=== PATIENT | female | born 1930 | race Caucasian/White ===

== ENCOUNTER 2017-04-06 20:55 | Inpatient (IN) | payer MEDICARE, MEDICAID ==
[~2017-04-06] VITALS: Ht 162.6 cm; Wt 61.2 kg
[~2017-04-06 20:55] MED LIST: CLOT15CR63 TP; DONE5TAB34 PO; HYDR59LO5 TP; LEVO100T9 PO; LISI-603 PO; PARO20TA6 PO; RISP0.5T20 PO; TRAZ-144 PO
[2017-04-06] MEDS ORDERED: LORAZEPAM INJ 2 MG/ML VIAL ONE (21:30)
[2017-04-06 21:34] LABS: BASOPHILS # (AUTO) 0.1 /CMM (0.0-0.2); BASOPHILS % (AUTO) 0.6 % (0.0-2.0); EOSINOPHILS # (AUTO) 0.2 /CMM (0.0-0.7); EOSINOPHILS % (AUTO) 2.5 % (0.0-6.0); HEMATOCRIT 38 % (33-45); HEMOGLOBIN 12.4 g/dL (11.5-14.8); LYMPHOCYTES # (AUTO) 1.1 /CMM (0.8-4.8); LYMPHOCYTES % (AUTO) 12.4 % (20.0-44.0); MEAN CORPUSCULAR HEMOGLOBIN 30 PG (26.0-33.0); MEAN CORPUSCULAR HGB CONC 33 g/dl (31.0-36.0); MEAN CORPUSCULAR VOLUME 91 fL (82-100); MONOCYTES # (AUTO) 0.7 /CMM (0.1-1.30); MONOCYTES % (AUTO) 7.3 % (2.0-12.0); NEUTROPHILS % (AUTO) 77.2 % (43.0-81.0); PLATELET COUNT (AUTO) 230 /CMM (150-450); RDW COEFFICIENT OF VARIATION 13.9 (11.5-15.0); RED BLOOD CELL COUNT(AUTO) 4.14 MIL/uL (4.0-5.2); WHITE BLOOD COUNT (AUTO) 9.1 K/uL (4.3-11.0)
[2017-04-06 21:42] LABS: CALCIUM, SERUM 9.5 mg/dL (8.5-10.1); CARBON DIOXIDE 23 mmol/L (21-32); CHLORIDE 109 mmol/L (98-107); CREATININE 1.6 mg/dL (0.6-1.3); GLUCOSE 112 mg/dL (74-106); POTASSIUM 4.4 mmol/L (3.5-5.1); SODIUM SERUM 144 mmol/L (136-145); UREA NITROGEN, BLOOD 31 mg/dL (7-18)
[2017-04-06 21:47] LABS: INR 1.01 (0.87-1.13); PROTHROMBIN TIME 10.5 SECS (9.5-12.7)
[2017-04-06 21:48] LABS: ALANINE AMINOTRANSFERASE 18 U/L (12-78); ALBUMIN 3.8 g/dL (3.4-5.0); ALKALINE PHOSPHATASE 93 U/L (46-116); ASPARTATE AMINOTRANSFERASE 18 U/L (15-37); BILIRUBIN,DIRECT 0.1 mg/dL (0.0-0.2); BILIRUBIN,TOTAL 0.9 mg/dL (0.2-1.0); TOTAL PROTEIN, SERUM 7.8 g/dL (6.4-8.2)
[2017-04-06 21:53] LABS: TROPONIN I < 0.017 ng/mL (0.00-0.056)
[2017-04-06] MEDS ORDERED: LORAZEPAM INJ 2 MG/ML VIAL IV PRN (23:00)
[2017-04-06] MEDS ORDERED: IV NS 0.9% 1,000 ML ONE (23:13)
[2017-04-06] MEDS ORDERED: IV SET PRIMARY 1 EA INFUS.SET MC ONE (23:13)
[2017-04-06 23:27] LABS: APPEARANCE,URINE SL CLOUDY (CLEAR); BILIRUBIN,URINE NEGATIVE (NEGATIVE); BLOOD, URINE TRACE-INTA Ery/uL (NEGATIVE); COLOR,URINE YELLOW (YELLOW); KETONES,URINE NEGATIVE (NEGATIVE); LEUKOCYTE ESTERASE ,URINE TRACE (NEGATIVE); NITRITE, URINE POSITIVE (NEGATIVE); PROTEIN,URINE NEGATIVE (NEGATIVE); UGLUCOSE NEGATIVE (NEGATIVE); UROBILINOGEN,URINE 0.2 EU/dL (0.2)
[2017-04-06] MEDS ORDERED: IV NS 0.9% 1,000 ML BAG IV ONE (23:30)
[2017-04-06 23:35] LABS: BACTERIA,URINE 3+ /HPF (None Seen); SQUAMOUS EPITHELIAL CELL,UR Rare /HPF (None Seen)
[2017-04-07] MEDS ORDERED: CEFTRIAXONE 1GM BAG (ER ONLY) 1 GM/50 ML PIGGYBACK IV ONE
[2017-04-07] MEDS ORDERED: CEFTRIAXONE 1GM BAG (ER ONLY) 50 ML IV ONE (00:06)
[2017-04-07] MEDS ORDERED: IV SET PRIMARY PUMP SET 1 EA INFUS.SET MC ONE ×2 (00:07→01:26)
[2017-04-07 00:15] VITALS: BP 152/75
[2017-04-07] MEDS ORDERED: IV NS 0.9% 1,000 ML BAG IV ONE (00:30)
[2017-04-07] MEDS ORDERED: MAG HYDROX/AL HYDROX/SIMETH 30 ML UDC PO PRN (00:30)
[2017-04-07] MEDS ORDERED: ACETAMINOPHEN 325 MG TABLET PO PRN (00:30)
[2017-04-07] MEDS ORDERED: CEFTRIAXONE 1 G in IV D5W 50 ML IV SCH (00:30)
[2017-04-07] MEDS ORDERED: ZOLPIDEM TARTRATE 5 MG TABLET PO PRN (00:30)
[2017-04-07] MEDS ORDERED: MAGNESIUM HYDROXIDE 30 ML UDC PO PRN (00:30)
[2017-04-07] MEDS ORDERED: Z GUARD REMEDY 2 OZ OINT TP PRN (00:30)
[2017-04-07] MEDS ORDERED: ONDANSETRON HCL/PF 4 MG/2 ML VIAL IVP PRN (00:30)
[2017-04-07 00:35] VITALS: BP 152/75
[2017-04-07 08:00] VITALS: BP 148/78
[2017-04-07] MEDS ORDERED: IV NS 0.9% 1,000 ML IV PRN (08:27)
[2017-04-07] MEDS ORDERED: HYDROCORTISONE 2.5% CREAM 28.4 GM TUBE TP SCH (08:28)
[2017-04-07] MEDS: risperiDONE 0.25 MG TABLET PO SCH ×2 (09:01→18:00)
[2017-04-07] MEDS: LISINOPRIL (20MG) 20 MG TABLET PO SCH (09:02)
[2017-04-07] MEDS: LEVOTHYROXINE SODIUM 100 MCG TABLET PO SCH (09:02)
[2017-04-07] MEDS: PAROXETINE HCL 20 MG TABLET PO SCH (09:02)
[2017-04-07 09:22] LABS: BASOPHILS % (AUTO) 0.6 % (0.0-2.0); EOSINOPHILS # (AUTO) 0.2 /CMM (0.0-0.7); EOSINOPHILS % (AUTO) 3.4 % (0.0-6.0); HEMATOCRIT 32 % (33-45); HEMOGLOBIN 10.8 g/dL (11.5-14.8); LYMPHOCYTES # (AUTO) 0.8 /CMM (0.8-4.8); MEAN CORPUSCULAR HEMOGLOBIN 31 PG (26.0-33.0); MEAN CORPUSCULAR HGB CONC 34 g/dl (31.0-36.0); MEAN CORPUSCULAR VOLUME 91 fL (82-100); MONOCYTES # (AUTO) 0.6 /CMM (0.1-1.30); MONOCYTES % (AUTO) 9.2 % (2.0-12.0); NEUTROPHILS # (AUTO) 4.6 /CMM (1.8-8.9); NEUTROPHILS % (AUTO) 73.8 % (43.0-81.0); PLATELET COUNT (AUTO) 174 /CMM (150-450); RDW COEFFICIENT OF VARIATION 14.5 (11.5-15.0); RED BLOOD CELL COUNT(AUTO) 3.54 MIL/uL (4.0-5.2); WHITE BLOOD COUNT (AUTO) 6.3 K/uL (4.3-11.0)
[2017-04-07 09:31] LABS: CALCIUM, SERUM 8.2 mg/dL (8.5-10.1); CARBON DIOXIDE 25 mmol/L (21-32); CHLORIDE 112 mmol/L (98-107); CREATININE 1.2 mg/dL (0.6-1.3); GLUCOSE 86 mg/dL (74-106); POTASSIUM 3.9 mmol/L (3.5-5.1); SODIUM SERUM 146 mmol/L (136-145); UREA NITROGEN, BLOOD 22 mg/dL (7-18)
[2017-04-07 09:33] LABS: IRON, SERUM 38 ug/dl (50-175); TOTAL IRON BINDING CAPACITY 209 ug/dl (250-450)
[2017-04-07 09:39] LABS: ALANINE AMINOTRANSFERASE 17 U/L (12-78); ALKALINE PHOSPHATASE 81 U/L (46-116); ASPARTATE AMINOTRANSFERASE 15 U/L (15-37); BILIRUBIN,TOTAL 0.8 mg/dL (0.2-1.0); MAGNESIUM 1.8 mg/dL (1.8-2.4); TOTAL PROTEIN, SERUM 6.3 g/dL (6.4-8.2)
[2017-04-07 09:41] LABS: CHOLESTEROL 204 mg/dL (<200); HDL CHOLESTEROL 34 mg/dL (40-60); LDL 134 mg/dL (0-99); THYROID STIMULATING HORMONE 0.195 uIU/mL (0.358-3.74); TRIGLYCERIDES 144 mg/dL (30-150)
[2017-04-07] MEDS: HYDROCORTISONE 2.5% LOTION 59 ML BOTTLE TP SCH (11:32)
[2017-04-07 16:00] VITALS: BP 115/56
[2017-04-07] MEDS: HYDROCODONE/APAP 5/325MG 1 EACH TABLET PO PRN (16:01)
[2017-04-07 20:00] VITALS: BP 164/77
[2017-04-07] MEDS: DONEPEZIL 5 MG TABLET PO SCH (22:24)
[2017-04-07] MEDS: TRAZODONE 50 MG TABLET PO SCH (22:24)
[2017-04-07] MEDS: CLOTRIMAZOLE 1% 15 GM TUBE TP SCH (22:27)
[2017-04-08] VITALS: BP 140/75
[2017-04-08] MEDS: CEFTRIAXONE 1 G in IV D5W 50 ML IV SCH ×2 (00:09→23:42)
[2017-04-08 04:00] VITALS: BP 144/67
[2017-04-08 07:53] LABS: BASOPHILS % (AUTO) 0.5 % (0.0-2.0); EOSINOPHILS # (AUTO) 0.2 /CMM (0.0-0.7); EOSINOPHILS % (AUTO) 2.8 % (0.0-6.0); HEMATOCRIT 36 % (33-45); HEMOGLOBIN 12.2 g/dL (11.5-14.8); LYMPHOCYTES # (AUTO) 0.7 /CMM (0.8-4.8); LYMPHOCYTES % (AUTO) 8.6 % (20.0-44.0); MEAN CORPUSCULAR HEMOGLOBIN 31 PG (26.0-33.0); MEAN CORPUSCULAR HGB CONC 34 g/dl (31.0-36.0); MEAN CORPUSCULAR VOLUME 92 fL (82-100); MONOCYTES # (AUTO) 0.6 /CMM (0.1-1.30); MONOCYTES % (AUTO) 7.3 % (2.0-12.0); NEUTROPHILS # (AUTO) 6.4 /CMM (1.8-8.9); NEUTROPHILS % (AUTO) 80.8 % (43.0-81.0); PLATELET COUNT (AUTO) 185 /CMM (150-450); RDW COEFFICIENT OF VARIATION 14.7 (11.5-15.0); RED BLOOD CELL COUNT(AUTO) 3.96 MIL/uL (4.0-5.2); WHITE BLOOD COUNT (AUTO) 7.9 K/uL (4.3-11.0)
[2017-04-08 08:21] LABS: CALCIUM, SERUM 9.2 mg/dL (8.5-10.1); CARBON DIOXIDE 26 mmol/L (21-32); CHLORIDE 112 mmol/L (98-107); CREATININE 0.9 mg/dL (0.6-1.3); GLUCOSE 98 mg/dL (74-106); MAGNESIUM 1.9 mg/dL (1.8-2.4); PHOSPHORUS 2.9 mg/dL (2.5-4.9); POTASSIUM 4.4 mmol/L (3.5-5.1); SODIUM SERUM 145 mmol/L (136-145); UREA NITROGEN, BLOOD 16 mg/dL (7-18)
[2017-04-08 08:26] LABS: CHOLESTEROL 229 mg/dL (<200); HDL CHOLESTEROL 37 mg/dL (40-60); LDL 146 mg/dL (0-99); TRIGLYCERIDES 190 mg/dL (30-150)
[2017-04-08] MEDS: PAROXETINE HCL 20 MG TABLET PO SCH (08:31)
[2017-04-08] MEDS: LISINOPRIL (20MG) 20 MG TABLET PO SCH (08:31)
[2017-04-08] MEDS: risperiDONE 0.25 MG TABLET PO SCH ×2 (08:32→16:36)
[2017-04-08] MEDS: HYDROCORTISONE 2.5% LOTION 59 ML BOTTLE TP SCH (08:32)
[2017-04-08] MEDS: LEVOTHYROXINE SODIUM 100 MCG TABLET PO SCH (08:32)
[2017-04-08] MEDS: IV 1/2NS 1000 ML 1,000 ML IV PRN (15:33)
[2017-04-08] MEDS: DONEPEZIL 5 MG TABLET PO SCH (21:33)
[2017-04-08] MEDS: HYDROCODONE/APAP 5/325MG 1 EACH TABLET PO PRN (21:34)
[2017-04-08] MEDS: CLOTRIMAZOLE 1% 15 GM TUBE TP SCH (21:35)
[2017-04-08] MEDS: TRAZODONE 50 MG TABLET PO SCH (21:35)
[2017-04-09 07:13] LABS: BASOPHILS % (AUTO) 0.5 % (0.0-2.0); EOSINOPHILS # (AUTO) 0.3 /CMM (0.0-0.7); EOSINOPHILS % (AUTO) 4.2 % (0.0-6.0); HEMATOCRIT 34 % (33-45); HEMOGLOBIN 11.3 g/dL (11.5-14.8); LYMPHOCYTES # (AUTO) 0.8 /CMM (0.8-4.8); LYMPHOCYTES % (AUTO) 12.1 % (20.0-44.0); MEAN CORPUSCULAR HEMOGLOBIN 31 PG (26.0-33.0); MEAN CORPUSCULAR HGB CONC 34 g/dl (31.0-36.0); MEAN CORPUSCULAR VOLUME 92 fL (82-100); MONOCYTES # (AUTO) 0.6 /CMM (0.1-1.30); MONOCYTES % (AUTO) 8.9 % (2.0-12.0); NEUTROPHILS # (AUTO) 4.9 /CMM (1.8-8.9); NEUTROPHILS % (AUTO) 74.3 % (43.0-81.0); PLATELET COUNT (AUTO) 178 /CMM (150-450); RDW COEFFICIENT OF VARIATION 14.3 (11.5-15.0); RED BLOOD CELL COUNT(AUTO) 3.66 MIL/uL (4.0-5.2); WHITE BLOOD COUNT (AUTO) 6.5 K/uL (4.3-11.0)
[2017-04-09 07:30] LABS: CARBON DIOXIDE 25 mmol/L (21-32); CHLORIDE 110 mmol/L (98-107); GLUCOSE 92 mg/dL (74-106); SODIUM SERUM 145 mmol/L (136-145); UREA NITROGEN, BLOOD 11 mg/dL (7-18)
[2017-04-09] MEDS: LEVOTHYROXINE SODIUM 100 MCG TABLET PO SCH (07:30)
[2017-04-09 08:00] VITALS: BP 110/60
[2017-04-09] MEDS: IV 1/2NS 1000 ML 1,000 ML IV PRN (08:05)
[2017-04-09] MEDS: LISINOPRIL (20MG) 20 MG TABLET PO SCH (08:08)
[2017-04-09] MEDS: PAROXETINE HCL 20 MG TABLET PO SCH (08:08)
[2017-04-09] MEDS: risperiDONE 0.25 MG TABLET PO SCH (08:08)
[2017-04-09] MEDS: HYDROCORTISONE 2.5% LOTION 59 ML BOTTLE TP SCH (08:09)
[2017-04-09] MEDS ORDERED: HYDROGEL DRESSING 90 GM TUBE TP PRN (09:00)
[2017-04-09] MEDS: HYDROGEL DRESSING 90 GM TUBE TP SCH (10:36)
[2017-04-09] MEDS ORDERED: risperiDONE 0.25 MG TABLET PO PRN (12:00)
[2017-04-09 16:00] VITALS: BP 105/53
[2017-04-09 20:15] VITALS: BP 136/84
[2017-04-09] MEDS: DONEPEZIL 5 MG TABLET PO SCH (22:00)
[2017-04-09] MEDS: CLOTRIMAZOLE 1% 15 GM TUBE TP SCH (22:20)
[2017-04-10] MEDS: IV 1/2NS 1000 ML 1,000 ML IV PRN ×2 (00:34→21:41)
[2017-04-10] MEDS: CEFTRIAXONE 1 G in IV D5W 50 ML IV SCH ×2 (00:34→23:50)
[2017-04-10] MEDS: LEVOTHYROXINE SODIUM 100 MCG TABLET PO SCH (07:30)
[2017-04-10 08:00] VITALS: BP 102/89
[2017-04-10 08:20] LABS: BASOPHILS % (AUTO) 0.5 % (0.0-2.0); EOSINOPHILS # (AUTO) 0.3 /CMM (0.0-0.7); EOSINOPHILS % (AUTO) 4.6 % (0.0-6.0); HEMATOCRIT 33 % (33-45); HEMOGLOBIN 10.9 g/dL (11.5-14.8); LYMPHOCYTES % (AUTO) 16.4 % (20.0-44.0); MEAN CORPUSCULAR HEMOGLOBIN 31 PG (26.0-33.0); MEAN CORPUSCULAR HGB CONC 33 g/dl (31.0-36.0); MEAN CORPUSCULAR VOLUME 91 fL (82-100); MONOCYTES # (AUTO) 0.6 /CMM (0.1-1.30); MONOCYTES % (AUTO) 9.5 % (2.0-12.0); NEUTROPHILS # (AUTO) 4.1 /CMM (1.8-8.9); PLATELET COUNT (AUTO) 174 /CMM (150-450); RDW COEFFICIENT OF VARIATION 14.5 (11.5-15.0); RED BLOOD CELL COUNT(AUTO) 3.59 MIL/uL (4.0-5.2)
[2017-04-10 08:36] LABS: CALCIUM, SERUM 8.9 mg/dL (8.5-10.1); CARBON DIOXIDE 24 mmol/L (21-32); CHLORIDE 110 mmol/L (98-107); GLUCOSE 87 mg/dL (74-106); POTASSIUM 4.5 mmol/L (3.5-5.1); SODIUM SERUM 144 mmol/L (136-145); UREA NITROGEN, BLOOD 12 mg/dL (7-18)
[2017-04-10] MEDS: LISINOPRIL (20MG) 20 MG TABLET PO SCH (09:00)
[2017-04-10] MEDS: PAROXETINE HCL 20 MG TABLET PO SCH (09:00)
[2017-04-10] MEDS: HYDROGEL DRESSING 90 GM TUBE TP SCH (12:09)
[2017-04-10] MEDS: HYDROCORTISONE 2.5% LOTION 59 ML BOTTLE TP SCH (12:10)
[2017-04-10 17:04] VITALS: BP 142/70
[2017-04-10 20:00] VITALS: BP 118/54
[2017-04-10] MEDS ORDERED: IV SET PRIMARY PUMP SET 1 EA INFUS.SET MC ONE (21:31)
[2017-04-10] MEDS: CLOTRIMAZOLE 1% 15 GM TUBE TP SCH (21:42)
[2017-04-10] MEDS: DONEPEZIL 5 MG TABLET PO SCH (21:43)
[2017-04-11] MEDS ORDERED: BOOST PLUS FOOD-CHOCLATE 237 ML BOX PO SCH (08:00)
[2017-04-11] MEDS ORDERED: MULTIVITAMINS,THERAPEUTIC 1 UDTAB TABLET PO SCH (09:00)
[2017-04-11] MEDS ORDERED: ASCORBIC ACID 500 MG TABLET PO SCH (09:00)
[2017-04-11] MEDS: PAROXETINE HCL 20 MG TABLET PO SCH (09:30)
[2017-04-11] MEDS: LEVOTHYROXINE SODIUM 100 MCG TABLET PO SCH (09:30)
[2017-04-11 09:31] VITALS: BP 125/54
[2017-04-11] MEDS: LISINOPRIL (20MG) 20 MG TABLET PO SCH (09:31)
[2017-04-11] MEDS: HYDROCORTISONE 2.5% LOTION 59 ML BOTTLE TP SCH (09:41)
[2017-04-11] MEDS: HYDROGEL DRESSING 90 GM TUBE TP SCH (09:41)
[2017-04-11] MEDS ORDERED: SULF1TAB48 PO (12:02)
[2017-04-11] MEDS: HYDROCODONE/APAP 5/325MG 1 EACH TABLET PO PRN (14:57)
== END 2017-04-11 15:05 | DRG 682 ==
LOC: ER 20:57 → TELE 22:38 → MED 04-07 01:30 → TELE 04-07 17:04 → MED 04-08 09:15
PROVIDERS: ADMIT Family Medicine; ATTEND Family Medicine
DX: N17.0 Acute kidney failure with tubular necrosis (principal); G92 Toxic encephalopathy; N39.0 Urinary tract infection, site not specified; F03.90 Unspecified dementia, unspecified severity, without behavioral disturbance, psychotic disturbance, mood disturbance, and anxiety; E03.9 Hypothyroidism, unspecified; I25.10 Atherosclerotic heart disease of native coronary artery without angina pectoris; I10 Essential (primary) hypertension; F32.9 Major depressive disorder, single episode, unspecified; F41.9 Anxiety disorder, unspecified; W19.XXXA Unspecified fall, initial encounter; Y92.89 Other specified places as the place of occurrence of the external cause; Y99.9 Unspecified external cause status; B96.89 Other specified bacterial agents as the cause of diseases classified elsewhere
CPT/HCPCS: 36415; 70450-TC; 71010-TC; 72125-TC; 80048-TC; 80053-TC; 80061-TC; 80076-TC; 81000-TC; 82306; 82550-TC; 82962-TC; 83540-TC; 83735-TC; 84100-TC; 84439-TC; 84443-TC; 84484-TC; 85025-TC; 85730-TC; 87081-TC; 87086-TC; 87186-TC; 93307-TC; 97001-TC; 97116-TC; 97530-TC; A4606; A6248; A6402; J0696; J2060; J3490; J7030; J7060; Z7610

== ENCOUNTER 2017-06-04 16:06 | Emergency (ER) | payer MEDICARE, MEDICAID ==
[~2017-06-04] VITALS: Ht 154.9 cm; Wt 54.4 kg
[~2017-06-04 16:06] MED LIST changes: +SULF1TAB48 PO
--- NOTE | 2017-06-04 16:06 | NUR ---
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 PLACED ON MONITOR. AWAITING MD ORDER
--- NOTE | 2017-06-04 16:21 | NUR ---
PT COMBATIVE, WILL NOT STAY STILL CT SCANS. ER WILL CALL WHEN READY.
[2017-06-04] MEDS ORDERED: OLANZAPINE 10 MG VIAL IM ONE (16:23)
[2017-06-04] MEDS: OLANZAPINE 10 MG VIAL IM ONE (16:30)
[2017-06-04 16:32] LABS: BASOPHILS # (AUTO) 0.1 /CMM (0.0-0.2); BASOPHILS % (AUTO) 0.8 % (0.0-2.0); EOSINOPHILS # (AUTO) 0.2 /CMM (0.0-0.7); EOSINOPHILS % (AUTO) 3.7 % (0.0-6.0); HEMATOCRIT 32 % (33-45); HEMOGLOBIN 10.6 g/dL (11.5-14.8); LYMPHOCYTES # (AUTO) 1.2 /CMM (0.8-4.8); LYMPHOCYTES % (AUTO) 19.2 % (20.0-44.0); MEAN CORPUSCULAR HEMOGLOBIN 31 PG (26.0-33.0); MEAN CORPUSCULAR HGB CONC 34 g/dl (31.0-36.0); MEAN CORPUSCULAR VOLUME 92 fL (82-100); MONOCYTES # (AUTO) 0.6 /CMM (0.1-1.30); MONOCYTES % (AUTO) 8.6 % (2.0-12.0); NEUTROPHILS # (AUTO) 4.3 /CMM (1.8-8.9); NEUTROPHILS % (AUTO) 67.7 % (43.0-81.0); PLATELET COUNT (AUTO) 182 /CMM (150-450); RDW COEFFICIENT OF VARIATION 14.1 (11.5-15.0); RED BLOOD CELL COUNT(AUTO) 3.43 MIL/uL (4.0-5.2); WHITE BLOOD COUNT (AUTO) 6.4 K/uL (4.3-11.0)
[2017-06-04 16:40] LABS: CALCIUM, SERUM 8.9 mg/dL (8.5-10.1); CARBON DIOXIDE 22 mmol/L (21-32); CHLORIDE 107 mmol/L (98-107); CREATININE 1.7 mg/dL (0.6-1.3); GLUCOSE 99 mg/dL (74-106); POTASSIUM 4.6 mmol/L (3.5-5.1); SODIUM SERUM 140 mmol/L (136-145); UREA NITROGEN, BLOOD 33 mg/dL (7-18)
--- NOTE | 2017-06-04 16:45 | NUR ---
LWRIST #20 IV ACCESS. BLOOD SAMPLE COLLECTED SENT TO LAB
--- NOTE | 2017-06-04 17:10 | NUR ---
PT TAKEN TO CT VIA CHARMAINE
--- NOTE | 2017-06-04 17:41 | NUR ---
URINE SAMPLE COLLECTED SENT TO LAB
[2017-06-04 17:53] LABS: APPEARANCE,URINE Cloudy (CLEAR); BILIRUBIN,URINE Negative (NEGATIVE); BLOOD, URINE Negative Ery/uL (NEGATIVE); COLOR,URINE Yellow (YELLOW); KETONES,URINE Trace (NEGATIVE); LEUKOCYTE ESTERASE ,URINE Small (NEGATIVE); NITRITE, URINE Positive (NEGATIVE); PROTEIN,URINE Negative (NEGATIVE); UGLUCOSE Negative (NEGATIVE); UROBILINOGEN,URINE 0.2 EU/dL (0.2)
[2017-06-04 18:20] LABS: BACTERIA,URINE Many /HPF (None Seen); RBC,URINE 0-2 /HPF (0-2); SQUAMOUS EPITHELIAL CELL,UR Few /HPF (None Seen)
[2017-06-04] MEDS ORDERED: CEFTRIAXONE 1GM BAG (ER ONLY) 50 ML IV ONE (19:03)
[2017-06-04] MEDS: CEFTRIAXONE 1GM BAG (ER ONLY) 1 GM/50 ML PIGGYBACK IV ONE (19:05)
--- NOTE | 2017-06-04 19:30 | NUR ---
patient in bed, calm, alert and responsive, no s/s of acute distress. vss.
--- NOTE | 2017-06-04 19:30 | NUR ---
GAVE REPORT FOR HARRISON RICHTER
--- NOTE | 2017-06-04 19:51 | NUR ---
CALLED [facility] FOR [facility], ETA OF 30 MINS WAS GIVEN.
--- NOTE | 2017-06-04 19:53 | NUR ---
Report given to Lalita from [facility] for dariusz.
--- NOTE | 2017-06-04 20:14 | NUR ---
Report given to [facility], vss. IV removed. Catheter intact and site benign. Pressure and 4x4 applied to site. No bleeding noted.
[2017-06-04 20:17] VITALS: BP 113/85
== END 2017-06-04 20:21 ==
LOC: ER 16:07
DX: S09.90XA Unspecified injury of head, initial encounter (principal); S02.2XXA Fracture of nasal bones, initial encounter for closed fracture; N39.0 Urinary tract infection, site not specified; F03.90 Unspecified dementia, unspecified severity, without behavioral disturbance, psychotic disturbance, mood disturbance, and anxiety; I10 Essential (primary) hypertension; W01.0XXA Fall on same level from slipping, tripping and stumbling without subsequent striking against object, initial encounter; Y93.89 Activity, other specified; Y92.89 Other specified places as the place of occurrence of the external cause; Y99.9 Unspecified external cause status
CPT/HCPCS: 36415; 70450-TC; 70486-TC; 72125-TC; 80048-TC; 81000-TC; 83605-TC; 85025-TC; 87040-TC; 87081-TC; 87086-TC; 87186-TC; A4606; J0696; J3490; Z7610

== ENCOUNTER 2017-07-18 13:31 | Inpatient (IN) | payer MEDICARE, MEDICAID ==
[~2017-07-18] VITALS: Ht 160 cm; Wt 54.0 kg
--- NOTE | 2017-07-18 13:45 | NUR ---
KATHARINE RA FROM [facility] DT GEN WEAKNESS AND LOW BP X 2 DAYS. PATIENT IS A/OX 1, CONFUSED, ANXIOUS. BREATHING EVEN AND UNLABORED. NO SOB. VITALS STABLE. SAFETY AND COMFORT MEASURSES IN PLACE. AWAITING MD ORDERS.
[2017-07-18] MEDS ORDERED: HALOPERIDOL LACTATE INJ 5 MG/ML VIAL ONE (14:29)
[2017-07-18] MEDS ORDERED: IV NS 0.9% 500 ML BAG IV ONE (14:30)
[2017-07-18] MEDS ORDERED: MIDAZOLAM HCL 2 MG/2ML VIAL IM ONE (14:30)
[2017-07-18] MEDS ORDERED: HALOPERIDOL LACTATE INJ 5 MG/ML VIAL IM ONE (14:30)
[2017-07-18] MEDS ORDERED: MIDAZOLAM HCL 2 MG/2ML VIAL ONE (14:30)
[2017-07-18 14:40] LABS: BASOPHILS # (AUTO) 0.1 /CMM (0.0-0.2); BASOPHILS % (AUTO) 0.9 % (0.0-2.0); EOSINOPHILS # (AUTO) 0.2 /CMM (0.0-0.7); EOSINOPHILS % (AUTO) 2.1 % (0.0-6.0); HEMATOCRIT 33 % (33-45); HEMOGLOBIN 11.3 g/dL (11.5-14.8); LYMPHOCYTES # (AUTO) 1.1 /CMM (0.8-4.8); LYMPHOCYTES % (AUTO) 12.7 % (20.0-44.0); MEAN CORPUSCULAR HEMOGLOBIN 32 PG (26.0-33.0); MEAN CORPUSCULAR HGB CONC 34 g/dl (31.0-36.0); MEAN CORPUSCULAR VOLUME 93 fL (82-100); MONOCYTES # (AUTO) 0.6 /CMM (0.1-1.30); MONOCYTES % (AUTO) 6.5 % (2.0-12.0); NEUTROPHILS # (AUTO) 6.8 /CMM (1.8-8.9); NEUTROPHILS % (AUTO) 77.8 % (43.0-81.0); PLATELET COUNT (AUTO) 232 /CMM (150-450); RDW COEFFICIENT OF VARIATION 13.7 (11.5-15.0); RED BLOOD CELL COUNT(AUTO) 3.58 MIL/uL (4.0-5.2); WHITE BLOOD COUNT (AUTO) 8.8 K/uL (4.3-11.0)
[2017-07-18 14:49] LABS: CALCIUM, SERUM 9.4 mg/dL (8.5-10.1); CARBON DIOXIDE 24 mmol/L (21-32); CHLORIDE 109 mmol/L (98-107); CREATININE 1.8 mg/dL (0.6-1.3); GLUCOSE 95 mg/dL (74-106); POTASSIUM 5.5 mmol/L (3.5-5.1); SODIUM SERUM 143 mmol/L (136-145); UREA NITROGEN, BLOOD 33 mg/dL (7-18)
[2017-07-18 14:58] LABS: TROPONIN I < 0.017 ng/mL (0.00-0.056)
[2017-07-18] MEDS ORDERED: QUET25TA PO (15:00)
--- NOTE | 2017-07-18 15:04 | NUR ---
BLOOD SUGAR, 68. MD INFORMED, ORDERS RECEIVED AND IMPLEMENTED.
[2017-07-18] MEDS ORDERED: IV D5/0.45 NACL 1,000 ML IV ONE (15:06)
--- NOTE | 2017-07-18 15:20 | NUR ---
PAGED DR GERONIMO FOR ADMISSION
--- NOTE | 2017-07-18 16:01 | NUR ---
REPAGED DR GERONIMO
--- NOTE | 2017-07-18 16:40 | NUR ---
Donte jasmine in ED - 07/18/17 at 1657 by TIO PATIENT TRANSPORTED TO [facility] VIA STRETCHER WITH EMT. FELISHA RAMIREZ TO PROVIDE NEELAM.
--- NOTE | 2017-07-18 16:42 | NUR ---
REPORT GIVEN TO FELISHA RAMIREZ FOR ADMISSION.
--- NOTE | 2017-07-18 16:45 | NUR ---
PATIENT TRANSPORTED TO [facility] VIA STRETCHER WITH EMT. RN, FELISHA TO PROVIDE NEELAM.
[2017-07-18] MEDS ORDERED: IV D5W 1,000 ML IV ONE (19:00)
[2017-07-18] MEDS ORDERED: ONDANSETRON HCL/PF 4 MG/2 ML VIAL IV PRN (19:00)
[2017-07-18 19:03] VITALS: BP 128/59
--- NOTE | 2017-07-18 19:21 | NUR ---
RN NOTES RECEIVED PT. PT IS STABLE AND RESTING IN BED. PT IS ON RA AT THIS TIME. NO S/S OF SOB. PT IS AGGITATED, APPEARS TO BE ANGRY. ATTEMPTED TO CALM PT. PER REPORT FROM ED, PT IS COMBATIVE, ATTEMPTING TO BITE AND STRIKE STAFF. SOFT WRIST RESTRAINTS ORDERED. ADMISSION ORDERS PLACED. SPOKE WITH PT'S DAUGHTER, ОЛЕГ COX [phone]. INFORMED HER FOR ADMISSION AND RESTRAINT USE. IV ACCESS ON RIGHT FA 18G RUNNING AT D5 NS @75ML/HR. SAFETY MEASURES IN PLACE, CALL LIGHT WITHIN REACH. WILL ENDORSE TO RETAIL BANKING MANAGER FOR NEELAM.
[2017-07-18 19:30] VITALS: BP 137/83
--- NOTE | 2017-07-18 19:30 | NUR ---
RN NOTES RECEIVED PATIENT FOR ADMISSION FOR DX OF FAILURE TO THRIVE WITH GENERALIZED WEAKNESS. PATIENT AO X 1, MOSTLY PRYDEINIG-SPEAKING. NO ACUTE DISTRESS NOTED. DENIES ANY PAIN AT THIS TIME. IV SITE PATENT, INTACT; IVF INFUSING ORDERED. BILATERAL SOFT WRIST RESTRAINTS IN PLACE; RELEASED FOR PASSIVE ROM AND SKIN CHECK. FULL BODY SKIN ASSESSMENT DONE. PATIENT ON LOW BED WITH BILATERAL UPPER SIDE RAILS UP. CALL LIGHT WITHIN EASY REACH. WILL CONTINUE TO MONITOR.
[2017-07-18 20:00] VITALS: BP 137/83
[2017-07-18] MEDS: CEFTRIAXONE 1 G in IV D5W 50 ML IV SCH (20:12)
[2017-07-19] MEDS: PANTOPRAZOLE 40 MG TABLET.DR PO SCH (06:05)
--- NOTE | 2017-07-19 06:40 | NUR ---
RN NOTES PATIENT ASLEEP, EASILY AROUSABLE. RESPIRATIONS EVEN. NO SIGNS OF PAIN NOTED. DUE MEDS GIVEN WITH NO ASE NOTED. NEEDS ATTENDED. PATIENT HAS BEEN CALM AND COOPERATIVE. PATIENT RELEASED FROM SOFT WRIST RESTRAINTS ON A TRIAL BASIS. CLOSELY MONITORED. SAFETY PRECAUTIONS AND COMFORT MEASURES IN PLACE. WILL GIVE REPORT TO DAY SHIFT FOR CONTINUITY OF CARE.
[2017-07-19 06:42] LABS: BASOPHILS % (AUTO) 0.8 % (0.0-2.0); EOSINOPHILS # (AUTO) 0.2 /CMM (0.0-0.7); EOSINOPHILS % (AUTO) 3.8 % (0.0-6.0); HEMATOCRIT 33 % (33-45); HEMOGLOBIN 11.1 g/dL (11.5-14.8); LYMPHOCYTES # (AUTO) 0.9 /CMM (0.8-4.8); LYMPHOCYTES % (AUTO) 15.1 % (20.0-44.0); MEAN CORPUSCULAR HEMOGLOBIN 31 PG (26.0-33.0); MEAN CORPUSCULAR HGB CONC 33 g/dl (31.0-36.0); MEAN CORPUSCULAR VOLUME 94 fL (82-100); MONOCYTES # (AUTO) 0.5 /CMM (0.1-1.30); MONOCYTES % (AUTO) 8.8 % (2.0-12.0); NEUTROPHILS # (AUTO) 4.2 /CMM (1.8-8.9); NEUTROPHILS % (AUTO) 71.5 % (43.0-81.0); PLATELET COUNT (AUTO) 197 /CMM (150-450); RDW COEFFICIENT OF VARIATION 14.7 (11.5-15.0); RED BLOOD CELL COUNT(AUTO) 3.56 MIL/uL (4.0-5.2); WHITE BLOOD COUNT (AUTO) 5.8 K/uL (4.3-11.0)
[2017-07-19 06:53] LABS: CALCIUM, SERUM 8.6 mg/dL (8.5-10.1); CARBON DIOXIDE 23 mmol/L (21-32); CHLORIDE 111 mmol/L (98-107); CREATININE 1.4 mg/dL (0.6-1.3); GLUCOSE 95 mg/dL (74-106); MAGNESIUM 2.2 mg/dL (1.8-2.4); PHOSPHORUS 3.9 mg/dL (2.5-4.9); POTASSIUM 4.4 mmol/L (3.5-5.1); SODIUM SERUM 142 mmol/L (136-145); UREA NITROGEN, BLOOD 24 mg/dL (7-18)
[2017-07-19 08:00] VITALS: BP 116/66
[2017-07-19] MEDS: PAROXETINE HCL 10 MG TABLET PO SCH (13:30)
--- NOTE | 2017-07-19 13:35 | NUR ---
MS RN NOTE PATIENT ATTEMPTED TO GET OUT OF THE BED. RN RESPONDED TO BED ALARM. PATIENT SAFELY ASSISTED BACK TO BED.
--- NOTE | 2017-07-19 13:40 | NUR ---
MS RN NOTE PATIENT ATTEMPTED TO GET OUT OF BED. RESPONDED TO BED ALARM. SAFELY ASSISTED THE PATIENT BACK TO BED. PATIENT IS REORIENTED TO TIME PLACE AND EVENT. USING CLM VOICE RN REASSURED AND REORIENTED THE PATIENT. EDUCATED THE PATIENT ON FALL PREVENTION. EDUCATED NOT TO GET OUT OF THE BED, CALL FOR ASSISTANCE. WITH THE USE OF CALL LIGHT. PATIENT IS UNABLE TO VERBALIZE UNDERSTANDING.
--- NOTE | 2017-07-19 13:50 | NUR ---
MS RN NOTE PATIENT ATTEMPTED TO GET OUT OF BED. RESPONDED TO BED ALARM. SAFELY ASSISTED THE PATIENT BACK TO BED. USING CALM VOICE RN REASSURED AND REORIENTED THE PATIENT TO TIME PLACE AND EVENT.
--- NOTE | 2017-07-19 14:06 | NUR ---
MS RN NOTE PATIENT WAS AGITATED ATTEMPTED GETTING OUT OF THE BED. REFUSED TAKING MEDICATIONS. ADMINISTERING MEDICATIONS ONCE PATIENT IS CALM/COOPERATIVE.
[2017-07-19] MEDS: TRAZODONE 50 MG TABLET PO SCH ×2 (14:23→21:10)
[2017-07-19] MEDS: LEVOTHYROXINE SODIUM 100 MCG TABLET PO SCH (14:23)
[2017-07-19] MEDS: DONEPEZIL 5 MG TABLET PO SCH ×2 (14:23→21:10)
[2017-07-19] MEDS: QUETIAPINE FUMARATE 25 MG TABLET PO SCH ×2 (14:24→21:10)
[2017-07-19] MEDS: IV D5/ 0.9% NACL 1,000 ML IV PRN (14:27)
[2017-07-19] MEDS: LORAZEPAM INJ 2 MG/ML VIAL IV PRN ×2 (14:36→23:04)
--- NOTE | 2017-07-19 14:45 | NUR ---
MS RN NOTE PATIENT ATTEMPTED TO DISCONNECT THE IV TUBBING. PATIENT IS SEVERELY CONFUSED AND DOES NOT RESPOND TO REORIENTATION. PATIENT IS PLACED IN MECHANICAL SOFT RESTRAINTS. EDUCATION R/T RESTRAINT NEED PROVIDED TO PATIENT WITH THE HELP OF [facility] HELEN[facility] SPEAKING PHYSICAL THERAPIST. WILL MONITOR THE PATIENT EVERY 15 MINUTES OFFERING FOOD/WATER/TOILETING/COMFORT.
--- NOTE | 2017-07-19 15:00 | NUR ---
MS RN NOTE PUDDING AN A SMALL CONTAINER OF WHOLE MILK OFFERED TO PATIENT. ATE 100% OF PROVIDED FOOD. DENIES PAIN. DIAPER IS DRY. 2 FINGERBREADTH SPACE BETWEEN THE SKIN AND THE SOFT RESTRAINT. NO OBSERVABLE SKIN REDNESS. PATIENT IS WATCHING TELEVISION. STABLE. VS WNL OFFERED TO PATIENT.
[2017-07-19 15:02] VITALS: BP 122/69
--- NOTE | 2017-07-19 15:15 | NUR ---
MS RN NOTE PATIENT'S RESTRAINTS ARE RELEASED. PATIENT IS CALM. SLEEPING IN BED. ALL NEEDS ATTENDED TO. REFUSED OFFERED WATER. DIAPER CHANGED. PATIENT IS REMINDED TO TURN TO REPOSITION SELF MAINTAINING ULTIMATE LIMB ALIGNING/OFFLOADING PRESSURE POINT. PATIENT DEMONSTRATED UNDERSTANDING OF THE TEACHING. WILL CONTINUE TO MONITOR.
[2017-07-19 16:00] VITALS: BP 98/59
[2017-07-19] MEDS: LACTOSE-FREE FOOD 237 ML LIQUID PO SCH (17:58)
--- NOTE | 2017-07-19 18:00 | NUR ---
MS RN NOTE WATER AND SEWER SYSTEMS SUPERVISOR AT THE BEDSIDE. SUGGESTED PATIENT'S DIET TO BE CHANGED TO PUREED.
--- NOTE | 2017-07-19 18:38 | NUR ---
MS RN CLOSING NOTE PATIENT IS SLEEPING IN BED COMFORTABLY. BED IS LOCKED AT THE LOWEST POSITION, SIDE RAILS UP X3, BED ALARM IS ON. IV FLUIDS RUNNING ORDERED THROUGH PATENT RAC IV. PRESENTS WITH NON LABORED, EVEN RESPIRATIONS. VS WNL. SPO2 95% RA. CALL LIGHT WITHIN REACH. ALL NEEDS ATTENDED TO. WILL ENDORSE TO CUSTOMER MARKETING INTERN RN FOF NEELAM.
--- NOTE | 2017-07-19 19:30 | NUR ---
RN NOTES RECEIVED PATIENT IN BED AWAKE, AO X 1, ANSWERS QUESTIONS WHEN ASKED; FIJIAN SPEAKING. NO ACUTE DISTRESS NOTED. DENIES ANY PAIN AT THIS TIME. PATIENT RESTLESS; TRYING TO PULL IV; TRYING TO GET OUT OF BED. PATIENT GIVEN REASSURANCE IN FIJIAN; INTERVENTIONS INEFFECTIVE; BILATERAL SOFT WRIST RESTRAINTS REORDERED AND REAPPLIED TO PATIENT. FAMILY AGREES WITH USE OF RESTRAINTS. ON LOW BED WITH BILATERAL UPPER SIDE RAILS UP; BED ALARM ON. CALL LIGHT WITHIN EASY REACH. WILL CONTINUE TO MONITOR PATIENT CLOSELY.
[2017-07-19 20:00] VITALS: BP 111/72
[2017-07-19] MEDS: CEFTRIAXONE 1 G in IV D5W 50 ML IV SCH (20:23)
--- NOTE | 2017-07-19 23:04 | NUR ---
RN NOTES PATIENT VERY AGITATED; AT RISK FOR INJURY; NONPHARMACOLOGICAL INTERVENTIONS INEFFECTIVE; ATIVAN GIVEN ORDERED. WILL CONTINUE TO MONITOR.
--- NOTE | 2017-07-20 06:05 | NUR ---
RN NOTES PATIENT ASLEEP, EASILY AROUSABLE. RESPIRATIONS EVEN. NO SIGNS OF PAIN NOTED. DUE MEDS GIVEN WITH NO ASE NOTED. NEEDS ATTENDED. CLOSELY MONITORED. SAFETY PRECAUTIONS AND COMFORT MEASURES IN PLACE. WILL GIVE REPORT TO DAY SHIFT FOR CONTINUITY OF CARE.
[2017-07-20] MEDS: PANTOPRAZOLE 40 MG TABLET.DR PO SCH (06:24)
[2017-07-20] MEDS: IV D5/ 0.9% NACL 1,000 ML IV PRN (06:24)
--- NOTE | 2017-07-20 07:30 | NUR ---
RN OPENING NOTES RECEIVED PATIENT IN BED,RESTING. A/O X 1, CONFUSED. NO ACUTE DISTRESS, NO SOB NOTED. DENIES ANY PAIN AT THIS TIME. IV SITE INTACT AND PATENT. PATIENT ON SOFT RESTRAINTS FOR SAFETY MEASURES, PER NIGHT RN PATIENT TRIED TO PULL IV OUT. BED IN LOW POSITION, LOCKED, SIDERAILS UP, CALL LIGHT IN REACH. WILL CONTINUE TO MONITOR ACCORDINGLY.
[2017-07-20 08:00] VITALS: BP 153/90
[2017-07-20] MEDS: LACTOSE-FREE FOOD 237 ML LIQUID PO SCH ×2 (08:00→17:00)
[2017-07-20] MEDS: LEVOTHYROXINE SODIUM 100 MCG TABLET PO SCH (10:27)
[2017-07-20] MEDS: PAROXETINE HCL 10 MG TABLET PO SCH (10:27)
--- NOTE | 2017-07-20 12:00 | NUR ---
RN NOTES DR GERONIMO ON BEDSIDE, ASK HIM IF HE CAN ORDER DNR STATUS, HE SAID OKAY.
--- NOTE | 2017-07-20 12:10 | NUR ---
RN NOTES PER DR GERONIMO, OKAY TO DO STRAIGHT IN AND OUT CATHETER TO COLLECT URINE SPECIMEN.
[2017-07-20] MEDS ORDERED: LORAZEPAM INJ 2 MG/ML VIAL IV PRN (13:00)
[2017-07-20 16:00] VITALS: BP 121/82
--- NOTE | 2017-07-20 16:00 | NUR ---
RN NOTES WAS NOT ABLE TO COLLECT URINE DUE TO PATIENT RESISTING AND REFUSING.
--- NOTE | 2017-07-20 19:30 | NUR ---
RN CLOSING NOTES NO CHANGES IN PATIENT'S CONDITION. NO ACUTE DISTRESS, NO SOB NOTED. ALL NEEDS ATTENDED AND PROVIDED. KEPT PATIENT SAFE AND COMFORTABLE. BED LOCKED, LOW POSITION, SIDERAILS UP X2. CALL LIGHT IN REACH. ENDORSED TO NIGHT RN FOR NEELAM.
--- NOTE | 2017-07-20 19:32 | NUR ---
ms/rn opening notes patient resting comfortably in bed, respirations even and unlabored. skin warm to touch. monitoring for any s/s of changes. iv hydration iv d5ns running at 100 cc/ht, w/ no s/s of infiltration. Will continue to monitor and provide care.Bed alarm for safety.
[2017-07-20 20:00] VITALS: BP 130/78
[2017-07-20] MEDS: CEFTRIAXONE 1 G in IV D5W 50 ML IV SCH (20:04)
[2017-07-20] MEDS: DONEPEZIL 5 MG TABLET PO SCH (21:05)
[2017-07-20] MEDS: QUETIAPINE FUMARATE 25 MG TABLET PO SCH (21:06)
[2017-07-20] MEDS: TRAZODONE 50 MG TABLET PO SCH (21:06)
--- NOTE | 2017-07-20 21:46 | NUR ---
ms/rn notes Urine collect via straight cath, patient provided safety/infection control prevention.
[2017-07-21] MEDS: PANTOPRAZOLE 40 MG TABLET.DR PO SCH (05:03)
--- NOTE | 2017-07-21 06:41 | NUR ---
MS/RN CLOSING NOTES PATIENT IN SEMI GARDNER POSITION, RESTING COMFORTABLY IN BED, ABLE TO SLEEP ATLEAST 9 HOURS. COOPERATIVE TO CARE AT TIMES, IN D5 NS INFUSING . WILL ENDORSE TO AM RN FOR NEELAM
[2017-07-21 06:52] LABS: APPEARANCE,URINE CLEAR (CLEAR); BILIRUBIN,URINE NEGATIVE (NEGATIVE); BLOOD, URINE NEGATIVE Ery/uL (NEGATIVE); COLOR,URINE YELLOW (YELLOW); KETONES,URINE NEGATIVE (NEGATIVE); LEUKOCYTE ESTERASE ,URINE NEGATIVE (NEGATIVE); NITRITE, URINE NEGATIVE (NEGATIVE); PH,URINE 5.5 (5.0-8.0); PROTEIN,URINE NEGATIVE (NEGATIVE); UGLUCOSE NEGATIVE (NEGATIVE); UROBILINOGEN,URINE 0.2 EU/dL (0.2)
--- NOTE | 2017-07-21 07:20 | NUR ---
RN OPENING NOTES RECEIVED PATIENT IN BED ASLEEP, AROUSES EASILY. A/O X 1, CONFUSED, CALM. NO ACUTE DISTRESS, NO SOB NOTED. DENIES ANY PAIN AT THIS TIME. IV SITE INTACT AND PATENT. BED IN LOW POSITION, LOCKED, SIDERAILS UP, CALL LIGHT IN REACH. WILL CONTINUE TO MONITOR ACCORDINGLY.
--- NOTE | 2017-07-21 07:21 | NUR ---
RN NOTES RESTRAINTS WAS OFF, PATIENT WAS CALM AND COOPERATIVE. WILL CONTINUE TO MONITOR ACCORDINGLY
[2017-07-21 08:00] VITALS: BP 116/64
[2017-07-21] MEDS: LACTOSE-FREE FOOD 237 ML LIQUID PO SCH ×2 (08:00→17:45)
[2017-07-21] MEDS: PAROXETINE HCL 10 MG TABLET PO SCH (09:09)
[2017-07-21] MEDS: LEVOTHYROXINE SODIUM 100 MCG TABLET PO SCH (09:10)
--- NOTE | 2017-07-21 11:00 | NUR ---
RN NOTES DAUGHTER ON BEDSIDE TAKING CARE OF THE PATIENT, ASSISTED PATIENT TO AMBULATE TO THE RESTROOM WITH STRATEGY ANALYST'S ASSISTANCE, PATIENT TOLERATED WELL. WILL CONTINUE TO MONITOR ACCORDINGLY.
[2017-07-21 16:00] VITALS: BP 122/68
[2017-07-21 20:00] VITALS: BP_SYST 116; BP_SYST 128; BP_DIAS 65; BP_DIAS 75
--- NOTE | 2017-07-21 20:00 | NUR ---
MS/RN OPENING NOTES PATIENT IN BED, OBSERVED SHIVERING, WARM BLANKET GIVEN AND TEMPERATURE CHECK AT 98.2 DEG F, SKIN WARM TO TOUCH AND RESTING NOW COMFORTABLY. WILL ADMINISTER ANTIBIOTIC VIA IV AND MONITOR ANY CHANGES. PATIENT CALM AND COOPERATIVE. WILL MONITOR
[2017-07-21] MEDS: CEFTRIAXONE 1 G in IV D5W 50 ML IV SCH (20:09)
[2017-07-21] MEDS: DONEPEZIL 5 MG TABLET PO SCH (21:36)
[2017-07-21] MEDS: TRAZODONE 50 MG TABLET PO SCH (21:36)
[2017-07-21] MEDS: QUETIAPINE FUMARATE 25 MG TABLET PO SCH (21:36)
[2017-07-21] MEDS: ACETAMINOPHEN 325 MG TABLET PO PRN (21:36)
--- NOTE | 2017-07-21 22:10 | NUR ---
MS/RN NOTES IV SITE ON LEFT FOREARM LEAKING AND REMOVED. REINSERT NEW IV ON RIGHT FOREARM GAUGE 22. NO S/S OF COMPLICATION, WILL MONITOR.
[2017-07-22] MEDS: IV D5/ 0.9% NACL 1,000 ML IV PRN ×2 (02:32→17:57)
[2017-07-22] MEDS: PANTOPRAZOLE 40 MG TABLET.DR PO SCH (05:01)
--- NOTE | 2017-07-22 06:49 | NUR ---
306-1 MS/RN CLOSING NOTES PATIENT IN HOB ELEVATED,ABLE TO SLEEP DURING THE NIGHT, IV REINSERTED, DUE TO PATIENT PULL OUT.IV ATB INFUSED W/ NO S/S OF ADVERESE REACTION.ON IV HYDRATION. RESTRAINT RENEWED. WILL ENDORSE TO AM RN FOR NEELAM
[2017-07-22 06:58] LABS: BASOPHILS % (AUTO) 0.6 % (0.0-2.0); EOSINOPHILS # (AUTO) 0.3 /CMM (0.0-0.7); EOSINOPHILS % (AUTO) 5.3 % (0.0-6.0); HEMATOCRIT 33 % (33-45); HEMOGLOBIN 10.9 g/dL (11.5-14.8); LYMPHOCYTES # (AUTO) 1.5 /CMM (0.8-4.8); LYMPHOCYTES % (AUTO) 22.8 % (20.0-44.0); MEAN CORPUSCULAR HEMOGLOBIN 31 PG (26.0-33.0); MEAN CORPUSCULAR HGB CONC 33 g/dl (31.0-36.0); MEAN CORPUSCULAR VOLUME 94 fL (82-100); MONOCYTES # (AUTO) 0.7 /CMM (0.1-1.30); MONOCYTES % (AUTO) 10.8 % (2.0-12.0); NEUTROPHILS # (AUTO) 3.9 /CMM (1.8-8.9); NEUTROPHILS % (AUTO) 60.5 % (43.0-81.0); PLATELET COUNT (AUTO) 170 /CMM (150-450); RDW COEFFICIENT OF VARIATION 14.4 (11.5-15.0); RED BLOOD CELL COUNT(AUTO) 3.47 MIL/uL (4.0-5.2); WHITE BLOOD COUNT (AUTO) 6.4 K/uL (4.3-11.0)
[2017-07-22 07:17] LABS: CALCIUM, SERUM 8.6 mg/dL (8.5-10.1); CARBON DIOXIDE 22 mmol/L (21-32); CHLORIDE 113 mmol/L (98-107); CREATININE 1.2 mg/dL (0.6-1.3); GLUCOSE 80 mg/dL (74-106); MAGNESIUM 1.8 mg/dL (1.8-2.4); PHOSPHORUS 3.2 mg/dL (2.5-4.9); POTASSIUM 4.3 mmol/L (3.5-5.1); SODIUM SERUM 145 mmol/L (136-145); UREA NITROGEN, BLOOD 20 mg/dL (7-18)
--- NOTE | 2017-07-22 07:30 | NUR ---
RN OPENING NOTES RECEIVED PATIENT IN BED ASLEEP, AROUSES EASILY. A/O X 1, CONFUSED, CALM, OFF RESTRAINTS. NO ACUTE DISTRESS, NO SOB NOTED. DENIES ANY PAIN AT THIS TIME. IV SITE INTACT AND PATENT. BED IN LOW POSITION, LOCKED, SIDERAILS UP, CALL LIGHT IN REACH. WILL CONTINUE TO MONITOR ACCORDINGLY.
[2017-07-22 08:00] VITALS: BP 126/68
[2017-07-22] MEDS: LACTOSE-FREE FOOD 237 ML LIQUID PO SCH ×2 (08:00→17:43)
[2017-07-22] MEDS: PAROXETINE HCL 10 MG TABLET PO SCH (08:39)
[2017-07-22] MEDS: LEVOTHYROXINE SODIUM 100 MCG TABLET PO SCH (08:39)
--- NOTE | 2017-07-22 11:00 | NUR ---
RN NOTES PATIENT AMBULATING AROUND THE UNIT WITH DAUGHTER'S ASSISTANCE, TOLERATED WELL
[2017-07-22 16:00] VITALS: BP 99/51
--- NOTE | 2017-07-22 17:00 | NUR ---
RN NOTES PATIENT TRIED GETTING OUT OF BED AND PULLING IV LINES, TALKED AND STAYED WITH THE PATIENT AND CALMED HER DOWN, PATIENT CALMED DOWN AND STAYED ON THE BED. WILL CONTINUE TO MONITOR ACCORDINGLY.
--- NOTE | 2017-07-22 19:09 | NUR ---
RN CLOSING NOTES PATIENT IN BED RESTING. NO ACUTE DISTRESS, NO SOB NOTED. ALL NEEDS ATTENDED AND PROVIDED. KEPT PATIENT SAFE AND COMFORTABLE. BED LOCKED, LOW POSITION, SIDERAILS UP X2. CALL LIGHT IN REACH. ENDORSED TO NIGHT RN FOR NEELAM.
--- NOTE | 2017-07-22 19:37 | NUR ---
MS/RN OPENING NOTES PATIENT IN BED, AWAKE, CALM AND COOPERATIVE TO CARE. REQUIRE MONITORING DUE TO IV BEING PULLED OUT PER AM REPORT. WILL CONTINUE TO MONITOR. RESTING COMFORTABLY IN BED, SKIN WARM TO TOUCH.
[2017-07-22 19:42] VITALS: BP 129/72
[2017-07-22 20:00] VITALS: BP 129/72
[2017-07-22] MEDS: CEFTRIAXONE 1 G in IV D5W 50 ML IV SCH (20:00)
[2017-07-22] MEDS: ACETAMINOPHEN 325 MG TABLET PO PRN (20:06)
[2017-07-22] MEDS: QUETIAPINE FUMARATE 25 MG TABLET PO SCH (21:42)
[2017-07-22] MEDS: TRAZODONE 50 MG TABLET PO SCH (21:42)
[2017-07-22] MEDS: DONEPEZIL 5 MG TABLET PO SCH (21:43)
--- NOTE | 2017-07-22 22:40 | NUR ---
MS/RN NOTES PATIENT REPORTED ITCHINESS ON LEFT FOREARM W/ NEEDED BENADRYL TO GIVE PO GIVEN WILL MONITOR EFFECTIVENESS
[2017-07-23] MEDS: PANTOPRAZOLE 40 MG TABLET.DR PO SCH (05:53)
--- NOTE | 2017-07-23 06:32 | NUR ---
MS/RN NOTES PATIENT REQUIRE MONITORING TO PREVENT IV TO BE PULLED OUT. ASSISTED AND PROVIDED CARE. ABLE TO SLEEP DURING THE NIGHT WILL ENDORSE TO AM RN REGARDING NEELAM.
--- NOTE | 2017-07-23 07:45 | NUR ---
MS RN NOTES RECEIVED PATIENT IN BED, SLEEPING, AROUSES EASILY. BREATHING EVEN AND NON LABORED. IV IN RFA PATENT AND INTACT, IVF D5 NS INFUSING AT 75ML/HR, NO SOB. PER NIGHT RN REPORT PATIENT WITH EPISODE OF ANXIETY AND PULLING OUT TUBE, APPEARS CALM AT THIS TIME. WILL CONT TO MONITOR. BED LOW AND BED ALARM ON. CALL LIGHT WITHIN REACH.
[2017-07-23 08:00] VITALS: BP 113/54
--- NOTE | 2017-07-23 08:22 | NUR ---
REPORT GIVEN TO MICHEL/RN FOR CONTINUITY OF CARE.
--- NOTE | 2017-07-23 08:23 | NUR ---
MS RN RECEIVED ON BED, SLEEPING, NOT IN ANY FORM F DISTRESS, RESPIRATIONS EVEN AND UNLABORED,NO SOB NOTED, LUNGS ARE CLEAR, ABDOMEN SOFT,POSITIVE BOWEL SOUNDS, RESTRAIN OFF AT THIS TIME, WILL MONITOR PATIENT.
--- NOTE | 2017-07-23 08:30 | NUR ---
MS RN DR. GERONIMO CAME TO SEE PATIENT, AWAITING FOR ORDERS.
--- NOTE | 2017-07-23 09:00 | NUR ---
MS RAMIREZ BREAKFAST SERVED,DUE MEDS GIVEN,TOLERATED WELL.
--- NOTE | 2017-07-23 09:30 | NUR ---
MS RN STILL PATIENT IS CALM, RESTRAIN STILL ON HOLD.
[2017-07-23] MEDS: LEVOTHYROXINE SODIUM 100 MCG TABLET PO SCH (10:23)
[2017-07-23] MEDS: PAROXETINE HCL 10 MG TABLET PO SCH (10:23)
[2017-07-23] MEDS: LACTOSE-FREE FOOD 237 ML LIQUID PO SCH (10:28)
--- NOTE | 2017-07-23 10:43 | NUR ---
MS RAMIREZ ATIVAN 0.25MG GIVEN IV FOR ANXIETY.
--- NOTE | 2017-07-23 11:00 | NUR ---
MS RN PATIENT IS MORE CALM NOW,NO DISTRESS NOTED.
[2017-07-23 14:00] VITALS: BP 107/60
--- NOTE | 2017-07-23 14:30 | NUR ---
MS RN PATIENT TRANSFERRED TO [facility], REPORT GIVEN TO REGINA. ALL NEEDS ATTENDED.
--- NOTE | 2017-07-23 14:35 | NUR ---
MS RN TRYING TO WASTE ATIVAN IN THE OMNICEL W/ TAO RN, CANNOT WASTE ANYMORE,PATIENT WAS DISCHARGE FROM LIST,PHARMACY AWARE.
== END 2017-07-23 14:32 | DRG 871 ==
LOC: ER 13:37 → MED 16:40
PROVIDERS: ADMIT Legal Medicine; ATTEND Legal Medicine
DX: A41.9 Sepsis, unspecified organism (principal); N17.0 Acute kidney failure with tubular necrosis; G93.40 Encephalopathy, unspecified; N39.0 Urinary tract infection, site not specified; F03.91 Unspecified dementia, unspecified severity, with behavioral disturbance; I12.9 Hypertensive chronic kidney disease with stage 1 through stage 4 chronic kidney disease, or unspecified chronic kidney disease; N18.3 Chronic kidney disease, stage 3 (moderate); R13.10 Dysphagia, unspecified; E03.9 Hypothyroidism, unspecified; Z79.899 Other long term (current) drug therapy; R53.1 Weakness; M19.90 Unspecified osteoarthritis, unspecified site
CPT/HCPCS: 36415; 71010-TC; 80048-TC; 81000-TC; 82962-TC; 83735-TC; 84100-TC; 84439-TC; 84484-TC; 85025-TC; 87081-TC; 87086-TC; A4606; J0696; J1630; J2060; J2250; J3490; J7030; J7040; J7042; J7060; Z7610

== ENCOUNTER 2017-09-11 22:52 | Inpatient (IN) | payer MEDICARE, MEDICAID ==
[~2017-09-11] VITALS: Ht 162.6 cm; Wt 42.8 kg
[~2017-09-11 22:52] MED LIST changes: -CLOT15CR63 TP; -HYDR59LO5 TP; -PARO20TA6 PO; +PARO20TA7 PO; +QUET25TA PO; -RISP0.5T20 PO; -SULF1TAB48 PO
--- NOTE | 2017-09-11 23:10 | NUR ---
[facility]RA [facility] FOR LT SHOULDER PAIN, LT EYEBROW LAC S/P GLF, UNKNOWN KO. PT NONVERBAL, HX DEMENTIA. RR EVEN AND UNLABORED. NO SOB NOTED. NAD NOTED. NO NVD AT THIS TIME. PT NOT DIAPHORETIC. PT GOWNED AND PLACED ON MONITOR. DR CORNELIUS AT BEDSIDE FOR EVAL.
[2017-09-11] MEDS ORDERED: TDAP [DIPH/PERTUSSIS/TET] 0.5 ML VIAL IM ONE (23:30)
--- NOTE | 2017-09-11 23:35 | NUR ---
LAB AT BEDSIDE FOR BLOOD DRAW.
--- NOTE | 2017-09-11 23:47 | NUR ---
PT TO RADIOLOGY FOR CT AND XRAYS
[2017-09-11 23:51] LABS: BASOPHILS % (AUTO) 0.6 % (0.0-2.0); EOSINOPHILS # (AUTO) 0.2 /CMM (0.0-0.7); EOSINOPHILS % (AUTO) 2.2 % (0.0-6.0); HEMATOCRIT 38 % (33-45); HEMOGLOBIN 12.4 g/dL (11.5-14.8); LYMPHOCYTES # (AUTO) 1.4 /CMM (0.8-4.8); LYMPHOCYTES % (AUTO) 19.8 % (20.0-44.0); MEAN CORPUSCULAR HEMOGLOBIN 31 PG (26.0-33.0); MEAN CORPUSCULAR HGB CONC 33 g/dl (31.0-36.0); MEAN CORPUSCULAR VOLUME 94 fL (82-100); MONOCYTES # (AUTO) 0.6 /CMM (0.1-1.30); MONOCYTES % (AUTO) 8.9 % (2.0-12.0); NEUTROPHILS # (AUTO) 4.8 /CMM (1.8-8.9); NEUTROPHILS % (AUTO) 68.5 % (43.0-81.0); PLATELET COUNT (AUTO) 195 /CMM (150-450); RDW COEFFICIENT OF VARIATION 13.9 (11.5-15.0); RED BLOOD CELL COUNT(AUTO) 3.99 MIL/uL (4.0-5.2); WHITE BLOOD COUNT (AUTO) 7.1 K/uL (4.3-11.0)
[2017-09-12 00:02] LABS: CALCIUM, SERUM 10.2 mg/dL (8.5-10.1); CARBON DIOXIDE 23 mmol/L (21-32); CHLORIDE 105 mmol/L (98-107); CREATININE 1.8 mg/dL (0.6-1.3); GLUCOSE 130 mg/dL (74-106); POTASSIUM 4.2 mmol/L (3.5-5.1); SODIUM SERUM 140 mmol/L (136-145); UREA NITROGEN, BLOOD 25 mg/dL (7-18)
[2017-09-12 00:05] LABS: INR 0.96 (0.87-1.13)
[2017-09-12 00:08] LABS: ALANINE AMINOTRANSFERASE 23 U/L (12-78); ALBUMIN 3.8 g/dL (3.4-5.0); ALKALINE PHOSPHATASE 99 U/L (46-116); ASPARTATE AMINOTRANSFERASE 21 U/L (15-37); BILIRUBIN,DIRECT 0.2 mg/dL (0.0-0.2); BILIRUBIN,TOTAL 0.9 mg/dL (0.2-1.0); TOTAL PROTEIN, SERUM 7.8 g/dL (6.4-8.2)
--- NOTE | 2017-09-12 00:09 | NUR ---
PT RETURNED FROM CT.
--- NOTE | 2017-09-12 00:13 | NUR ---
RADIOLOGY AT BEDSIDE FOR SHOULDER XR
--- NOTE | 2017-09-12 00:50 | NUR ---
CALLED FOR M/S BED
[2017-09-12] MEDS ORDERED: ONDANSETRON HCL/PF 4 MG/2 ML VIAL ONE (00:59)
[2017-09-12] MEDS ORDERED: ONDANSETRON HCL/PF 4 MG/2 ML VIAL IV ONE (01:00)
[2017-09-12] MEDS ORDERED: IV NS 0.9% 1,000 ML BAG IV ONE (01:00)
[2017-09-12] MEDS ORDERED: HYDROMORPHONE INJ 2 MG/ML DISP.SYRIN ONE (01:19)
[2017-09-12] MEDS ORDERED: TDAP [DIPH/PERTUSSIS/TET] 0.5 ML VIAL IM ONE (01:20)
[2017-09-12] MEDS ORDERED: HYDROMORPHONE 1 MG/1 ML DISP.SYRIN IV ONE ×2 (02:00)
--- NOTE | 2017-09-12 02:00 | NUR ---
DR. CORNELIUS AT BEDSIDE FOR LAC REPAIR
--- NOTE | 2017-09-12 02:05 | NUR ---
Patient is resting comfortably in bed with eyes closed. Easily aroused. VSS
--- NOTE | 2017-09-12 02:26 | NUR ---
CALLED [facility], CT SCAN CURRENTLY BEING READ
--- NOTE | 2017-09-12 03:18 | NUR ---
CALLED [facility], CT SCAN CURRENTLY BEING RE-READ AT THIS TIME.
--- NOTE | 2017-09-12 03:44 | NUR ---
JUANPABLO PAGEMariano
--- NOTE | 2017-09-12 04:06 | NUR ---
PT REASSIGNED TO 326-1
--- NOTE | 2017-09-12 04:10 | NUR ---
REPORT GIVEN TO ASHLEY MENENDEZ ON BEHALF OF ASHLEY LEMUS FOR MS BED 308
--- NOTE | 2017-09-12 04:48 | NUR ---
DR. GERONIMO SPEAKING TO DR. CORNELIUS REGARDING RESULTS.
[2017-09-12] MEDS ORDERED: IV NS 0.9% 1,000 ML BAG IV PRN (05:30)
[2017-09-12] MEDS ORDERED: HYDROMORPHONE 1 MG/1 ML DISP.SYRIN IV PRN (05:30)
[2017-09-12] MEDS ORDERED: ONDANSETRON HCL/PF 4 MG/2 ML VIAL IV PRN (05:30)
--- NOTE | 2017-09-12 05:30 | NUR ---
RN OPENING NOTES RECEIVED PATIENT IN STABLE CONDITION FROM ER. NON VERBAL. VS STABLE. RESPIRATIONS EVEN AND UNLABORED. NO SOB NOTED. BS X4. IV ACCESS ON RAC #20 PATENT AND INTACT, FLUSHING WELL WITH NS. SKIN CLEAN AND DRY. PICTURES TAKEN AND PLACED IN THE CHART. ALL NEEDS MET. AWAITING FOR MD ORDERS. BED IN LOW AND LOCKED POSITION. SIDE RAILSX2. CALL LIGHT WITHIN EASY REACH. WILL CONTINUE TO MONITOR.
[2017-09-12 05:58] VITALS: BP 115/67
[2017-09-12 06:00] VITALS: BP 115/67
--- NOTE | 2017-09-12 07:05 | NUR ---
RN CLOSING NOTES PATIENT IS SLEEPING IN THE BED, NON VERBAL. VS STABLE. RESPIRATIONS EVEN AND UNLABORED. NO SOB NOTED. IV ACCESS ON RAC #20 PATENT AND INTACT, INFUSING NS AT 75 ML/HR. NO REDNESS OR INFILTRATION NOTED. BED IN LOW AND LOCKED POSITION. SIDE RAILSX2. CALL LIGHT WITHIN EASY REACH. WILL ENDORSE TO RN DAY SHIFT FOR CONTINUITY OF CARE.
[2017-09-12 07:19] LABS: CARBON DIOXIDE 23 mmol/L (21-32); CHLORIDE 109 mmol/L (98-107); CREATININE 1.4 mg/dL (0.6-1.3); GLUCOSE 111 mg/dL (74-106); POTASSIUM 4.3 mmol/L (3.5-5.1); SODIUM SERUM 143 mmol/L (136-145); UREA NITROGEN, BLOOD 22 mg/dL (7-18)
[2017-09-12] MEDS: PANTOPRAZOLE 40 MG TABLET.DR PO SCH (07:30)
--- NOTE | 2017-09-12 07:30 | NUR ---
RECEIVED PT. THIS AM ALERT AND ORIENTED X 4,O2 ON,SOB WITH MINIMAL EXERTION.PT. INFORMED RN SHE WANTS TO GO HOME TODAY.
--- NOTE | 2017-09-12 07:30 | NUR ---
RECEIVED PT. DIFF. TO DETERMINE LEVEL OF ALERTNESS,AROUSES WHEN SPOKEN TO BUT VERY GROGGY.
[2017-09-12 08:00] VITALS: BP 116/52
[2017-09-12] MEDS: ENOXAPARIN SODIUM 30 MG/0.3 ML DISP.SYRIN SQ SCH (08:45)
[2017-09-12] MEDS ORDERED: DOCU100C36 PO (08:59)
[2017-09-12 11:10] LABS: BASOPHILS % (AUTO) 0.7 % (0.0-2.0); EOSINOPHILS # (AUTO) 0.2 /CMM (0.0-0.7); EOSINOPHILS % (AUTO) 2.3 % (0.0-6.0); HEMATOCRIT 32 % (33-45); HEMOGLOBIN 10.5 g/dL (11.5-14.8); LYMPHOCYTES % (AUTO) 14.6 % (20.0-44.0); MEAN CORPUSCULAR HEMOGLOBIN 31 PG (26.0-33.0); MEAN CORPUSCULAR HGB CONC 33 g/dl (31.0-36.0); MEAN CORPUSCULAR VOLUME 93 fL (82-100); MONOCYTES # (AUTO) 0.6 /CMM (0.1-1.30); NEUTROPHILS # (AUTO) 4.9 /CMM (1.8-8.9); NEUTROPHILS % (AUTO) 73.4 % (43.0-81.0); PLATELET COUNT (AUTO) 143 /CMM (150-450); RDW COEFFICIENT OF VARIATION 13.8 (11.5-15.0); RED BLOOD CELL COUNT(AUTO) 3.38 MIL/uL (4.0-5.2); WHITE BLOOD COUNT (AUTO) 6.6 K/uL (4.3-11.0)
[2017-09-12] MEDS: LEVOTHYROXINE SODIUM 100 MCG TABLET PO SCH (12:30)
[2017-09-12] MEDS: DONEPEZIL 5 MG TABLET PO SCH ×2 (12:30→22:36)
[2017-09-12] MEDS: TRAZODONE 50 MG TABLET PO SCH ×2 (12:30→22:36)
[2017-09-12] MEDS: QUETIAPINE FUMARATE 25 MG TABLET PO SCH ×2 (12:30→22:36)
[2017-09-12] MEDS: PAROXETINE HCL 20 MG TABLET PO SCH (12:30)
[2017-09-12] MEDS: DOCUSATE SODIUM 100 MG CAPSULE PO SCH ×2 (12:30→17:33)
--- NOTE | 2017-09-12 13:30 | NUR ---
UNABLE TO TAKE MEDS DUE TO GROGGINESS,NO BREAKFAST OR LUNCH.IV INFUSING. IN AND MEDS RECONCILED AND PT. MADE DNR.STATES ORTHO CONSULT AND RN INQUIRED TO ORDER FOR SLING.
--- NOTE | 2017-09-12 13:30 | NUR ---
DTR. CALLING IN TO CHECK ON PT.
--- NOTE | 2017-09-12 15:30 | NUR ---
PT. WOKE UP AND A LITTLE DISCOMFORT WHEN MOVED WITH A LITTLE FACIAL GRIMACING.
[2017-09-12 16:00] VITALS: BP 110/48
--- NOTE | 2017-09-12 18:00 | NUR ---
NO CHANGE IN STATUS.
--- NOTE | 2017-09-12 19:30 | NUR ---
RN NOTES RECEIVED PATIENT IN BED ASLEEP, AROUSABLE. CONFUSED, NON-VERBAL. NO ACUTE DISTRESS NOTED. NO SIGNS OF PAIN NOTED. IV SITE PATENT, INTACT; IVF INFUSING ORDERED. GREAT CARE GIVEN TO LEFT UPPER EXTREMITY DUE TO FRACTURE. ON LOW BED WITH BILATERAL UPPER SIDE RAILS UP. BED ALARM ON. WILL CONTINUE TO MONITOR.
[2017-09-12 20:00] VITALS: BP 97/56
[2017-09-12] MEDS: IV NS 0.9% 1,000 ML IV PRN (22:44)
[2017-09-13] MEDS: HYDROMORPHONE INJ 2 MG/ML DISP.SYRIN IV PRN ×3 (00:54→23:41)
--- NOTE | 2017-09-13 06:30 | NUR ---
RN NOTES PATIENT ASLEEP, AROUSABLE. RESPIRATIONS EVEN. NO SIGNS OF PAIN NOTED. DUE MEDS GIVEN WITH NO ASE NOTED. NEEDS ATTENDED. REPOSITIONED REGULARLY. KEPT CLEAN, DRY, COMFORTABLE. SAFETY PRECAUTIONS AND COMFORT MEASURES IN PLACE. WILL GIVE REPORT TO DAY SHIFT FOR CONTINUITY OF CARE.
[2017-09-13 07:29] LABS: BASOPHILS % (AUTO) 0.6 % (0.0-2.0); EOSINOPHILS # (AUTO) 0.1 /CMM (0.0-0.7); EOSINOPHILS % (AUTO) 1.8 % (0.0-6.0); HEMATOCRIT 31 % (33-45); HEMOGLOBIN 10.3 g/dL (11.5-14.8); LYMPHOCYTES # (AUTO) 0.9 /CMM (0.8-4.8); MEAN CORPUSCULAR HEMOGLOBIN 32 PG (26.0-33.0); MEAN CORPUSCULAR HGB CONC 33 g/dl (31.0-36.0); MEAN CORPUSCULAR VOLUME 95 fL (82-100); MONOCYTES # (AUTO) 0.6 /CMM (0.1-1.30); MONOCYTES % (AUTO) 9.6 % (2.0-12.0); NEUTROPHILS # (AUTO) 4.1 /CMM (1.8-8.9); PLATELET COUNT (AUTO) 135 /CMM (150-450); RDW COEFFICIENT OF VARIATION 13.7 (11.5-15.0); RED BLOOD CELL COUNT(AUTO) 3.25 MIL/uL (4.0-5.2); WHITE BLOOD COUNT (AUTO) 5.8 K/uL (4.3-11.0)
[2017-09-13] MEDS: PANTOPRAZOLE 40 MG TABLET.DR PO SCH (07:30)
[2017-09-13] MEDS: LEVOTHYROXINE SODIUM 100 MCG TABLET PO SCH (07:30)
--- NOTE | 2017-09-13 07:30 | NUR ---
MS RN OPENING NOTES RECEIVED PATIENT IN STABLE CONDITION. IN NO APPARENT DISTRESS. PATIENT IS RESTING IN BED. CALL LIGHT IS WITHIN REACH. BEDSIDE RAILS ARE UP X2. BED IS LOCKED AND LOWERED. WILL CONTINUE TO MONITOR.
[2017-09-13 07:33] LABS: CALCIUM, SERUM 8.6 mg/dL (8.5-10.1); CARBON DIOXIDE 22 mmol/L (21-32); CHLORIDE 114 mmol/L (98-107); CREATININE 1.3 mg/dL (0.6-1.3); GLUCOSE 94 mg/dL (74-106); POTASSIUM 4.3 mmol/L (3.5-5.1); SODIUM SERUM 144 mmol/L (136-145); UREA NITROGEN, BLOOD 16 mg/dL (7-18)
[2017-09-13 08:00] VITALS: BP 155/106
[2017-09-13] MEDS: DOCUSATE SODIUM 100 MG CAPSULE PO SCH ×2 (08:10→17:00)
[2017-09-13] MEDS: PAROXETINE HCL 20 MG TABLET PO SCH (08:11)
[2017-09-13] MEDS: ENOXAPARIN SODIUM 30 MG/0.3 ML DISP.SYRIN SQ SCH (08:17)
[2017-09-13 16:00] VITALS: BP 124/68
--- NOTE | 2017-09-13 16:00 | NUR ---
GAVE PATIENT DILAUDID FOR PAIN. Q3H.
--- NOTE | 2017-09-13 18:43 | NUR ---
MS RN CLOSING NOTES PATIENT IS RESTING IN BED. IN NO APPARENT DISTRESS. ALL NEEDS WERE MET. CALL LIGHT IS WITHIN REACH. BEDSIDE RAILS ARE UP X2. BED IS LOCKED AND LOWERED. WILL ENDORSE CARE TO BOTTLE ASSEMBLER NURSE FOR NEELAM.
--- NOTE | 2017-09-13 19:30 | NUR ---
RN NOTES RECEIVED PATIENT IN BED ASLEEP, AROUSABLE. CONFUSED, NON-VERBAL. NO ACUTE DISTRESS NOTED. NO SIGNS OF PAIN NOTED. RIGHT AC GAUGE 22 IV SITE PATENT, INTACT; IVF INFUSING ORDERED. GREAT CARE GIVEN TO LEFT UPPER EXTREMITY DUE TO FRACTURE. ON LOW BED WITH BILATERAL UPPER SIDE RAILS UP. BED ALARM ON. WILL CONTINUE TO MONITOR.
[2017-09-13 20:00] VITALS: BP 102/53
[2017-09-13 20:07] VITALS: BP 102/53
--- NOTE | 2017-09-13 21:59 | NUR ---
RN NOTES PATIENT EATS MORE WHEN FOOD IS OF PUREED CONSISTENCY. DIET CHANGED TO PUREED.
[2017-09-13] MEDS: QUETIAPINE FUMARATE 25 MG TABLET PO SCH (22:48)
[2017-09-13] MEDS: DONEPEZIL 5 MG TABLET PO SCH (22:48)
[2017-09-13] MEDS: TRAZODONE 50 MG TABLET PO SCH (22:48)
[2017-09-13] MEDS: IV NS 0.9% 1,000 ML IV PRN (22:50)
[2017-09-13] MEDS ORDERED: HYDROMORPHONE INJ 2 MG/ML DISP.SYRIN ONE (23:38)
--- NOTE | 2017-09-14 06:13 | NUR ---
RN NOTES PATIENT ASLEEP, EASILY AROUSABLE. RESPIRATIONS EVEN. NO SIGNS OF PAIN NOTED. DUE MEDS GIVEN WITH NO ASE NOTED. URINE COLLECTED FOR UA AND CULTURE. NEEDS ATTENDED. REPOSITIONED Q 2 HOURS. SAFETY PRECAUTIONS AND COMFORT MEASURES IN PLACE. WILL GIVE REPORT TO DAY SHIFT FOR CONTINUITY OF CARE.
[2017-09-14 06:47] LABS: APPEARANCE,URINE CLOUDY (CLEAR); BILIRUBIN,URINE NEGATIVE (NEGATIVE); BLOOD, URINE TRACE-INTA Ery/uL (NEGATIVE); COLOR,URINE YELLOW (YELLOW); KETONES,URINE NEGATIVE (NEGATIVE); LEUKOCYTE ESTERASE ,URINE 2+ (NEGATIVE); NITRITE, URINE POSITIVE (NEGATIVE); PROTEIN,URINE NEGATIVE (NEGATIVE); UGLUCOSE NEGATIVE (NEGATIVE); UROBILINOGEN,URINE 0.2 EU/dL (0.2)
[2017-09-14 07:03] LABS: BACTERIA,URINE Many /HPF (None Seen); SQUAMOUS EPITHELIAL CELL,UR Moderate /HPF (None Seen); WBC,URINE 51-80 /HPF (0-3)
[2017-09-14 08:00] VITALS: BP 108/63
--- NOTE | 2017-09-14 08:00 | NUR ---
MS RN NOTES Received patient in bed , eyes closed, easily arousable to verbal stimuli. No SOB noted. No sign of distress noted. Denied any pain. IV line on LFA, intact,patent, no s/sx of infiltration. Call light placed within reach. Will continue to monitor accordingly.
[2017-09-14] MEDS: DOCUSATE SODIUM 100 MG CAPSULE PO SCH ×2 (08:51→16:40)
[2017-09-14] MEDS: ASCORBIC ACID 500 MG TABLET PO SCH (08:51)
[2017-09-14] MEDS: PANTOPRAZOLE 40 MG TABLET.DR PO SCH (08:51)
[2017-09-14] MEDS: PAROXETINE HCL 20 MG TABLET PO SCH (08:51)
[2017-09-14] MEDS: MULTIVITAMINS,THERAGRAN 1 UDTAB TABLET PO SCH (08:51)
[2017-09-14] MEDS: LEVOTHYROXINE SODIUM 100 MCG TABLET PO SCH (08:51)
[2017-09-14] MEDS: ENOXAPARIN SODIUM 30 MG/0.3 ML DISP.SYRIN SQ SCH (08:52)
[2017-09-14] MEDS: CEFTRIAXONE 1 G in IV D5W 50 ML IV SCH (10:12)
[2017-09-14 16:00] VITALS: BP 128/71
[2017-09-14] MEDS: IV NS 0.9% 1,000 ML IV PRN (16:41)
[2017-09-14] MEDS: ACETAMINOPHEN 325 MG TABLET PO PRN ×2 (16:44→21:00)
--- NOTE | 2017-09-14 18:55 | NUR ---
MS RN CLOSING NOTES Patient in bed comfortably, alert. HOB elevated. No distress noted. No SOB noted. Due medications given no A/R noted. Repositioned and offloading every 2 hours. Needs attended and anticipated. Kept clean and dry. Safety precaution in place.Will continue to monitor and endorse to incoming shift.
[2017-09-14 20:00] VITALS: BP 118/73
[2017-09-14] MEDS: Z GUARD REMEDY 4 OZ OINT TP SCH (20:59)
[2017-09-14] MEDS: QUETIAPINE FUMARATE 25 MG TABLET PO SCH (21:00)
[2017-09-14] MEDS: TRAZODONE 50 MG TABLET PO SCH (21:00)
[2017-09-14] MEDS: DONEPEZIL 5 MG TABLET PO SCH (21:00)
[2017-09-14 21:05] VITALS: BP 148/73
[2017-09-15] MEDS: IV NS 0.9% 1,000 ML IV PRN ×2 (00:05→15:04)
--- NOTE | 2017-09-15 06:00 | NUR ---
RN CLOSING NOTE CONFUSION PERSISTS BUT SAFETY MAINTAINED THROUGHOUT SHIFT. MEDICATED TWICE WITH TYLENOL FOR ARM PAIN WITH EFFECTIVE RELIEF. REMAINS IN STABLE CONDITION WITH NO ACUTE CHANGES NOTED TO ASSESSMENT.
[2017-09-15] MEDS: ACETAMINOPHEN 325 MG TABLET PO PRN ×2 (06:37→12:34)
[2017-09-15 08:00] VITALS: BP 122/69
[2017-09-15] MEDS: DOCUSATE SODIUM 100 MG CAPSULE PO SCH ×2 (09:36→17:44)
[2017-09-15] MEDS: LEVOTHYROXINE SODIUM 100 MCG TABLET PO SCH (09:36)
[2017-09-15] MEDS: ENOXAPARIN SODIUM 30 MG/0.3 ML DISP.SYRIN SQ SCH (09:37)
[2017-09-15] MEDS: ASCORBIC ACID 500 MG TABLET PO SCH (09:37)
[2017-09-15] MEDS: PANTOPRAZOLE 40 MG TABLET.DR PO SCH (09:37)
[2017-09-15] MEDS: MULTIVITAMINS,THERAGRAN 1 UDTAB TABLET PO SCH (09:38)
[2017-09-15] MEDS: PAROXETINE HCL 20 MG TABLET PO SCH (09:38)
[2017-09-15] MEDS: Z GUARD REMEDY 4 OZ OINT TP SCH ×2 (09:48→20:25)
[2017-09-15] MEDS: CEFTRIAXONE 1 G in IV D5W 50 ML IV SCH (10:08)
[2017-09-15] MEDS: FENTANYL PF 100MCG/2ML AMPUL IV PRN ×3 (12:56→21:51)
[2017-09-15 16:00] VITALS: BP 116/58
--- NOTE | 2017-09-15 16:00 | NUR ---
HOSPICE EVAL. DONE.FAMILY HERE,SLEEPY AT TIMES THEN WAKES UP AND ROLLING IN BED WITH PAIN.FENTANYL 30 MCG X2 AN TYLENOL 650 MG PO.X1.
[2017-09-15 20:00] VITALS: BP 136/73
--- NOTE | 2017-09-15 20:03 | NUR ---
RN NOTES RECEIVED PATIENT IN BED, RESTING COMFORTABLY, AROSEABLE BY VOICE AND TOUCH, CONFUSED, ALERT AND ORIENTED ONLY TO SELF, NO SOB, NO RESPIRATORY DISTRESS, LUNG SOUNDS ARE CLEAR, SPO2 AT ROOM AIR 95%, NOT IN APPARENT PAIN, WAS GIVEN FENTANYL IVP EARLIER. RIGHT AC PERIPHERAL LINE IS PATENT AND INFUSING WELL, ON FALL PRECAUTION, KEPT SAFE AND COMFORTABLE, BED ALARM TURNED ON. CALL LIGHT WITHIN REACH.
[2017-09-15] MEDS: QUETIAPINE FUMARATE 25 MG TABLET PO SCH (21:35)
[2017-09-15] MEDS: DONEPEZIL 5 MG TABLET PO SCH (21:35)
[2017-09-15] MEDS: TRAZODONE 50 MG TABLET PO SCH (21:35)
[2017-09-16] MEDS: IV NS 0.9% 1,000 ML IV PRN (04:29)
[2017-09-16] MEDS ORDERED: FENTANYL PF 100MCG/2ML AMPUL ONE (05:03)
[2017-09-16] MEDS: FENTANYL PF 100MCG/2ML AMPUL IV PRN ×2 (05:14→13:08)
--- NOTE | 2017-09-16 05:18 | NUR ---
RN NOTES FENTANYL IVP TAKEN FROM MS2. PER JAMES PATIENT IS DISCHARGED. TAKEN FENTANYL VIAL VIA OVERRIDE. DOSE INPUTTED TO LEAHICELL CHANGED TO CORRECT DOSE TO 30 MCG AND WASTED 70 MCG
--- NOTE | 2017-09-16 05:20 | NUR ---
RN NOTES PATIENT GIVEN FENTANYL 30 MCG VIA IVP, VSS, NO RESPIRATORY DISTRESS, PROVIDED O2 VIA NC AT 2LPM, HOB ELEVATED. PATIENT IS RESTLESS WITH FACIAL GRIMACING AND MOANING. WILL CONTINUE TO MONITOR.
--- NOTE | 2017-09-16 06:35 | NUR ---
RN NOTES PATIENT IS RESTING COMFORTABLY, AROUSEABLE BY VOICE AND TOUCH, NO RESPIRATORY DISTRESS, GIVEN FENTANYL 30 MCG FOR PAIN TO LEFT ARM, PROVIDED O2 VIA NC AT 2LPM PRECAUTION, KEPT HOB ELEVATED. RIGHT AC PERIPHERAL LINE IS PATENT AND INFUSING WELL. BEING MONITORED CLOSELY FOR SAFETY. NEEDS ATTENDED, CALL LIGHT WITHIN REACH.
--- NOTE | 2017-09-16 07:35 | NUR ---
MS RN OPENING NOTES RECEIVED PATIENT IN STABLE CONDITION. PATIENT IS RESTING IN BED IN NO APPARENT DISTRESS. BEDSIDE RAILS ARE UP X2. BED IS LOCKED AND LOWERED. WILL CONTINUE TO MONITOR.
[2017-09-16 08:00] VITALS: BP 117/66
[2017-09-16] MEDS: PANTOPRAZOLE 40 MG TABLET.DR PO SCH (08:01)
[2017-09-16] MEDS: MULTIVITAMINS,THERAGRAN 1 UDTAB TABLET PO SCH (08:01)
[2017-09-16] MEDS: ASCORBIC ACID 500 MG TABLET PO SCH (08:01)
[2017-09-16] MEDS: DOCUSATE SODIUM 100 MG CAPSULE PO SCH (08:02)
[2017-09-16] MEDS: LEVOTHYROXINE SODIUM 100 MCG TABLET PO SCH (08:02)
[2017-09-16] MEDS: PAROXETINE HCL 20 MG TABLET PO SCH (08:02)
[2017-09-16] MEDS: Z GUARD REMEDY 4 OZ OINT TP SCH (08:08)
[2017-09-16] MEDS: ENOXAPARIN SODIUM 30 MG/0.3 ML DISP.SYRIN SQ SCH (08:10)
[2017-09-16] MEDS: CEFTRIAXONE 1 G in IV D5W 50 ML IV SCH (09:45)
--- NOTE | 2017-09-16 13:00 | NUR ---
PATIENT DISCHARGED IN STABLE CONDITION TO [facility]. GAVE REPORT TO MADONNA [phone]. REMOVED PERIPHERAL IV.
== END 2017-09-16 13:30 | DRG 562 ==
LOC: ER 22:53 → MED 09-12 03:49
PROVIDERS: ADMIT Legal Medicine; ATTEND Legal Medicine
PROC: 0HBRXZZ Excision of Toe Nail, External Approach (ICD-10-PCS; principal; 2017-09-12)
DX: S42.212A Unspecified displaced fracture of surgical neck of left humerus, initial encounter for closed fracture (principal); N17.0 Acute kidney failure with tubular necrosis; L89.151 Pressure ulcer of sacral region, stage 1; E86.0 Dehydration; D69.2 Other nonthrombocytopenic purpura; F03.90 Unspecified dementia, unspecified severity, without behavioral disturbance, psychotic disturbance, mood disturbance, and anxiety; N18.3 Chronic kidney disease, stage 3 (moderate); N39.0 Urinary tract infection, site not specified; S01.81XA Laceration without foreign body of other part of head, initial encounter; E03.9 Hypothyroidism, unspecified; S01.112A Laceration without foreign body of left eyelid and periocular area, initial encounter; W19.XXXA Unspecified fall, initial encounter; Y93.9 Activity, unspecified; Y92.129 Unspecified place in nursing home as the place of occurrence of the external cause; L60.3 Nail dystrophy; R29.6 Repeated falls; S90.415A Abrasion, left lesser toe(s), initial encounter; S61.502A Unspecified open wound of left wrist, initial encounter; L98.8 Other specified disorders of the skin and subcutaneous tissue; I12.9 Hypertensive chronic kidney disease with stage 1 through stage 4 chronic kidney disease, or unspecified chronic kidney disease
CPT/HCPCS: 36415; 70450-TC; 70486-TC; 71010-TC; 72125-TC; 72170-TC; 73030-TC; 80048-TC; 80076-TC; 81000-TC; 85025-TC; 85730-TC; 86850-TC; 87081-TC; 87086-TC; 87186-TC; 90715; A4606; J0696; J1170; J1650; J2405; J3010; J7030; J7040; J7042; J7060; Z7610

== ENCOUNTER 2017-09-20 08:46 | Emergency (ER) | payer MEDICARE, MEDICAID ==
[~2017-09-20] VITALS: Ht 162.6 cm; Wt 48.5 kg
[~2017-09-20 08:46] MED LIST changes: +DOCU-170 PO; -LISI-603 PO; +PARO20TA6 PO; -PARO20TA7 PO
[2017-09-20] MEDS ORDERED: IV NS 0.9% 500 ML BAG IV ONE (09:00)
[2017-09-20] MEDS ORDERED: ALBUTEROL FS 2.5 MG/3 ML VIAL.NEB NEB ONE (09:00)
[2017-09-20] MEDS ORDERED: IPRATROPIUM NEB FS 0.5 MG/2.5 ML AMPUL.NEB NEB ONE (09:00)
--- NOTE | 2017-09-20 09:00 | NUR ---
RICHY FROM [facility] FOR SOB AND ALOC. NOTED SATING AT LOW 80'S ON NON-REBRREATHER MASK EEG TECHNICIAN. DNR/DNI PT. NOTED WITH MULTIPLE BRUISES ON L CHEST WALL, L UPPER ARM. SEEN BY MD FOR EVAL. IV ACCESS EEG TECHNICIAN. SAFETY AND COMFORT MEASURES PROVIDED. WILL MONITOR.
[2017-09-20] MEDS ORDERED: ALBUTEROL FS 2.5 MG/3 ML VIAL.NEB ONE (09:11)
[2017-09-20] MEDS ORDERED: IPRATROPIUM NEB FS 0.5 MG/2.5 ML AMPUL.NEB ONE (09:11)
--- NOTE | 2017-09-20 09:16 | NUR ---
RUG SCRATCHER AT FOR BLOOD AND CULTURE DRAW.
[2017-09-20 09:23] LABS: ABG BASE EXCESS -21.4 mmol/L; ABG OXYGEN SATURATION 98.3 % (92.0-98.5); ABG PCO2 10.4 mmHg (35.0-45.0); ABG PH 7.206 (7.350-7.450); ABG PO2 196.5 mmHg (75.0-100.0); COHb 0.3 % (0.5-1.5); MetHb 0.3 % (0.0-1.5); O2Hb 97.7 % (94.0-97.0); SITE, ABG Right Radial; VENT MODE, BG NRB
--- NOTE | 2017-09-20 09:29 | NUR ---
RYANN AT BS.
[2017-09-20 09:39] LABS: BASOPHILS # (AUTO) 0.1 /CMM (0.0-0.2); BASOPHILS % (AUTO) 0.4 % (0.0-2.0); EOSINOPHILS # (AUTO) 0.1 /CMM (0.0-0.7); EOSINOPHILS % (AUTO) 0.7 % (0.0-6.0); HEMATOCRIT 31 % (33-45); HEMOGLOBIN 10.1 g/dL (11.5-14.8); LYMPHOCYTES # (AUTO) 1.2 /CMM (0.8-4.8); LYMPHOCYTES % (AUTO) 6.9 % (20.0-44.0); MEAN CORPUSCULAR HEMOGLOBIN 32 PG (26.0-33.0); MEAN CORPUSCULAR HGB CONC 33 g/dl (31.0-36.0); MEAN CORPUSCULAR VOLUME 96 fL (82-100); MONOCYTES # (AUTO) 0.6 /CMM (0.1-1.30); MONOCYTES % (AUTO) 3.1 % (2.0-12.0); NEUTROPHILS % (AUTO) 88.9 % (43.0-81.0); PLATELET COUNT (AUTO) 186 /CMM (150-450); RDW COEFFICIENT OF VARIATION 14.5 (11.5-15.0); RED BLOOD CELL COUNT(AUTO) 3.19 MIL/uL (4.0-5.2)
[2017-09-20 09:50] LABS: CALCIUM, SERUM 8.8 mg/dL (8.5-10.1); CHLORIDE 117 mmol/L (98-107); CREATININE 3.3 mg/dL (0.6-1.3); GLUCOSE 115 mg/dL (74-106); POTASSIUM 4.1 mmol/L (3.5-5.1); SODIUM SERUM 154 mmol/L (136-145); UREA NITROGEN, BLOOD 40 mg/dL (7-18)
[2017-09-20 09:56] LABS: INR 1.2 (0.87-1.13); PROTHROMBIN TIME 12.5 SECS (9.5-12.7)
--- NOTE | 2017-09-20 10:08 | NUR ---
pt taken to ct.
[2017-09-20 10:09] LABS: CARBON DIOXIDE 8 mmol/L (21-32)
[2017-09-20 10:10] LABS: TROPONIN I 73.827 ng/mL (0.00-0.056)
--- NOTE | 2017-09-20 10:20 | NUR ---
IN AND OUT CATH INITIATED- NO URINE OUTPUT NOTED AT THIS TIME. MADE AWARE.
[2017-09-20] MEDS ORDERED: ENOX30DI IV (10:29)
[2017-09-20] MEDS ORDERED: ASCO500T9 PO (10:29)
[2017-09-20] MEDS ORDERED: CEPH-569 PO (10:29)
[2017-09-20] MEDS ORDERED: ACET-868 PO (10:29)
[2017-09-20] MEDS ORDERED: MULT-24 PO (10:29)
[2017-09-20] MEDS ORDERED: HYDR-552 PO (10:29)
[2017-09-20] MEDS ORDERED: VANCOMYCIN 1 GM in IV D5W 250 ML IV ONE (10:30)
[2017-09-20] MEDS ORDERED: PIPERACILLIN /TAZOBACTAM 3.375 G in IV D5W 50 ML IV ONE (10:30)
[2017-09-20] MEDS ORDERED: IV NS 0.9% 1,000 ML BAG IV ONE (10:30)
[2017-09-20 10:58] LABS: ALANINE AMINOTRANSFERASE 91 U/L (12-78); ALBUMIN 2.4 g/dL (3.4-5.0); ALKALINE PHOSPHATASE 113 U/L (46-116); ASPARTATE AMINOTRANSFERASE 219 U/L (15-37); BILIRUBIN,DIRECT 0.3 mg/dL (0.0-0.2); BILIRUBIN,TOTAL 1.4 mg/dL (0.2-1.0); TOTAL PROTEIN, SERUM 6.3 g/dL (6.4-8.2)
--- NOTE | 2017-09-20 11:13 | NUR ---
Dr. Vale cunningham.
[2017-09-20] MEDS ORDERED: ATROPINE SULFATE 1 MG/10 ML DISP.SYRIN ONE (11:25)
[2017-09-20] MEDS ORDERED: ATROPINE SULFATE INJ 1 MG/ML VIAL IV ONE (11:30)
[2017-09-20] MEDS ORDERED: DEXTROSE 50%-WATER 50 ML DISP.SYRIN ONE (11:33)
--- NOTE | 2017-09-20 11:55 | NUR ---
PT , DR. TINSLEY AND FAMILY MEMBERS AT .
--- NOTE | 2017-09-20 12:30 | NUR ---
STORE LEAD CALLED PT'S FAMILY REQUESTS INFO FOR MORTUARY.
--- NOTE | 2017-09-20 12:42 | NUR ---
SW received a call from ED CRN Loree stating that pt. and family is requesting a list of mortuaries. SUELLEN met with pt's family bedside and offered her condolences. SUELLEN also gave family list of mortuaries and cremation resources. Per family, they are interested in cremation. No other social service needs are required at this time. SW is available if needed.
--- NOTE | 2017-09-20 12:45 | NUR ---
FAMILY MEMBERS REMAINS AT BS.
--- NOTE | 2017-09-20 13:40 | NUR ---
PT'S BODY TAGGED PER PROTOCOL DICK DAVIDSON AND TRANSFERRED TO THE [facility] [place] PER PROTOCOL.
[2017-09-20 13:56] VITALS: BP 0/0
== END 2017-09-20 13:57 ==
LOC: ER 08:47
DX: A41.9 Sepsis, unspecified organism (principal); R65.20 Severe sepsis without septic shock; N17.9 Acute kidney failure, unspecified; I46.9 Cardiac arrest, cause unspecified; F03.90 Unspecified dementia, unspecified severity, without behavioral disturbance, psychotic disturbance, mood disturbance, and anxiety; I10 Essential (primary) hypertension
CPT/HCPCS: 36415; 36600 ×2; 71010; 71250; 80048; 80076; 82803; 83605; 84484; 85025; 85730; 87040 ×2; 93005 ×2; 94644; 96360; 99291; A4606; J0461; J2543; J3370; J7030; J7040 ×2; J7060 ×2; Z7610